=== PATIENT | female | born 1945 | race Caucasian/White ===

== ENCOUNTER 2018-11-14 11:51 | Inpatient (IN) | payer MEDICARE, BC ==
[~2018-11-14] VITALS: Ht 162.6 cm; Wt 83.5 kg
[2018-11-14 14:07] LABS: BASOPHILS 0.3 % (0-2); EOSINOPHILS 4.4 % (0-7); HEMATOCRIT 37.2 % (36.0-48.0); HEMOGLOBIN 12.5 g/dL (12-16); LYMPHOCYTES 36.7 % (15-50); MCH 32.3 pg (26.0-34.0); MCHC 33.6 g/dL (31.0-37.0); MCV 96.1 fL (80.0-100.0); MEAN PLATELET VOLUME 12.1 fL (7.4-10.4); NEUTROPHILS 48.6 % (40-80); PLATELET COUNT 217 10x3/uL (130-400); RBC 3.87 10x6/uL (4.00-5.40); RDW 14.1 % (11.5-14.5); WBC 3.9 10x3/uL (4.8-10.8)
[2018-11-14 14:21] LABS: ALBUMIN 3.1 g/dL (3.4-5.0); ALKALINE PHOSPHATASE 89 U/L (46-116); ALT (SGPT) 17 U/L (10-68); BILIRUBIN - TOTAL 0.75 mg/dL (0.2-1.3); CALC OSMOLALITY 272 mosm/kg (275-300); CALCIUM 9.1 mg/dL (8.5-10.1); CHLORIDE - SERUM 101 mmol/L (98-107); CREATININE - SERUM 0.5 mg/dL (0.6-1.3); GLUCOSE 82 mg/dL (74-106); POTASSIUM - SERUM 3.5 mmol/L (3.5-5.1); PROTEIN - SERUM 6.3 g/dL (6.4-8.2); SODIUM 138 mmol/L (136-145); UREA NITROGEN 7 mg/dL (7-18); eGFR NON AFRICAN AMERICAN > 90 mL/min (90-120)
[2018-11-14 14:29] LABS: MAGNESIUM - SERUM 1.9 mg/dL (1.8-2.4); THYROID STIMULATING HORMONE 0.77 uIU/mL (0.36-3.74)
[2018-11-14 15:17] VITALS: BP 164/66
[2018-11-14 17:32] VITALS: BP 140/63
[2018-11-14 17:45] VITALS: BP 147/68; BMI 31.6
--- NOTE | 2018-11-14 19:00 | NUR ---
REPORT RECEIVED AND CARE OF PT ASSUMED. PT LYING IN SUPINE POSITION WATCHING TV. REPORTS SMALL BM AND PASSING LOTS OF GAS SINCE RECEIVING MAG CITRATE. WILL MONITOR FOR NEEDS.
[2018-11-14 20:55] VITALS: BP 144/58
--- NOTE | 2018-11-14 21:27 | NUR ---
HS MEDICATIONS GIVEN. WILL CONTINUE TO MONITOR FOR NEEDS.
[2018-11-15 04:56] LABS: BASOPHILS 0.3 % (0-2); EOSINOPHILS 6.6 % (0-7); HEMATOCRIT 34.2 % (36.0-48.0); HEMOGLOBIN 11.2 g/dL (12-16); IMMATURE GRANULOCYTES 0.3 % (0-5); LYMPHOCYTES 39.7 % (15-50); MCH 31.9 pg (26.0-34.0); MCHC 32.7 g/dL (31.0-37.0); MCV 97.4 fL (80.0-100.0); MEAN PLATELET VOLUME 11.9 fL (7.4-10.4); MONOCYTES 14.8 % (2-11); NEUTROPHILS 38.3 % (40-80); PLATELET COUNT 195 10x3/uL (130-400); RBC 3.51 10x6/uL (4.00-5.40); RDW 14.5 % (11.5-14.5); WBC 3.2 10x3/uL (4.8-10.8)
[2018-11-15 05:13] LABS: ALBUMIN 2.4 g/dL (3.4-5.0); ALKALINE PHOSPHATASE 65 U/L (46-116); ALT (SGPT) 16 U/L (10-68); BILIRUBIN - TOTAL 0.58 mg/dL (0.2-1.3); CALC OSMOLALITY 275 mosm/kg (275-300); CALCIUM 7.9 mg/dL (8.5-10.1); CARBON DIOXIDE 32.2 mmol/L (21.0-32.0); CHLORIDE - SERUM 105 mmol/L (98-107); CREATININE - SERUM 0.5 mg/dL (0.6-1.3); GLUCOSE 105 mg/dL (74-106); POTASSIUM - SERUM 3.2 mmol/L (3.5-5.1); PROTEIN - SERUM 5.3 g/dL (6.4-8.2); SODIUM 140 mmol/L (136-145); eGFR NON AFRICAN AMERICAN > 90 mL/min (90-120)
[2018-11-15 05:16] VITALS: BP 124/39
[2018-11-15 05:21] LABS: UREA NITROGEN 4 mg/dL (7-18)
[2018-11-15 08:16] VITALS: BP 121/40
--- NOTE | 2018-11-15 09:06 | NUR ---
PT ALERT X 4. EXPIRATORY WHEEZES TO ALL EDMOND, O2 OFF BUT WITHIN REACH. IV TO LEFT AC, PATENT, DRESSING CDI. SKIN TEAR TO LEFT FOREARM, DRESSING CDI. ABDOMEN TENDER IN LLQ, BOWEL SOUNDS ACIVE. BED LOW, CALL LIGHT IN REACH. NO OTHER NEEDS AT THIS TIME.
[2018-11-15 12:49] VITALS: BP 127/60
[2018-11-15 16:41] VITALS: BP 129/41
--- NOTE | 2018-11-15 19:00 | NUR ---
REPORT RECEIVED AND CARE OF PT ASSUMED. PT LYING IN SUPINE POSITION WATCHING TV. IV TO LEFT AC PATENT WITH D5NS INFUSING AT 100 ML/HR. O2 IN USE VIA NC AT 2L. WILL MONITOR FOR NEEDS.
[2018-11-15 20:00] VITALS: BP 137/47
--- NOTE | 2018-11-15 20:23 | NUR ---
HS MEDICATIONS GIVEN. WILL CONTINUE TO MONITOR FOR NEEDS.
--- NOTE | 2018-11-15 23:49 | NUR ---
IV TO LEFT AC LEAKING / BLEEDING. REMOVED WITH CATHETER TIP INTACT. RE-SITED TO LEFT WRIST USING 22 GUAGE CATHETER IN ONE STICK. IV FLUIDS RE-STARTED.
[2018-11-16] VITALS: BP 114/53
[2018-11-16 04:00] VITALS: BP 107/44
[2018-11-16 04:06] LABS: BASOPHILS 0.3 % (0-2); EOSINOPHILS 6.6 % (0-7); HEMATOCRIT 34.2 % (36.0-48.0); HEMOGLOBIN 11.1 g/dL (12-16); LYMPHOCYTES 38.4 % (15-50); MCH 31.6 pg (26.0-34.0); MCHC 32.5 g/dL (31.0-37.0); MCV 97.4 fL (80.0-100.0); MEAN PLATELET VOLUME 12.3 fL (7.4-10.4); MONOCYTES 11.8 % (2-11); NEUTROPHILS 42.9 % (40-80); PLATELET COUNT 190 10x3/uL (130-400); RBC 3.51 10x6/uL (4.00-5.40); RDW 14.3 % (11.5-14.5)
[2018-11-16 04:34] LABS: ALBUMIN 2.5 g/dL (3.4-5.0); ALKALINE PHOSPHATASE 67 U/L (46-116); ALT (SGPT) 14 U/L (10-68); BILIRUBIN - TOTAL 0.51 mg/dL (0.2-1.3); CALC OSMOLALITY 275 mosm/kg (275-300); CALCIUM 8.3 mg/dL (8.5-10.1); CARBON DIOXIDE 28.9 mmol/L (21.0-32.0); CHLORIDE - SERUM 107 mmol/L (98-107); CREATININE - SERUM 0.5 mg/dL (0.6-1.3); GLUCOSE 110 mg/dL (74-106); POTASSIUM - SERUM 3.5 mmol/L (3.5-5.1); PROTEIN - SERUM 5.6 g/dL (6.4-8.2); SODIUM 139 mmol/L (136-145); UREA NITROGEN 5 mg/dL (7-18); eGFR NON AFRICAN AMERICAN > 90 mL/min (90-120)
[2018-11-16 08:20] VITALS: BP 138/47
--- NOTE | 2018-11-16 08:56 | NUR ---
PT ALERT X 4. EXPIRATORY WHEEZES TO ALL EDMOND, O2 OFF BUT WITHIN REACH. PAIN RATED 5/10, WILL MONITOR. IV TO LEFT WRIST, PATENT, DRESSING CDI. BED LOW, CALL LIGHT IN REACH. NO OTHER NEEDS AT THIS TIME.
[2018-11-16 12:39] VITALS: BP 123/54
[2018-11-16 13:31] VITALS: Ht 162.6 cm; Wt 83.5 kg
[2018-11-16 17:15] VITALS: BP 143/56
[2018-11-16 17:41] LABS: APPEARANCE CLEAR (CLEAR); BILIRUBIN NEGATIVE (NEGATIVE); COLOR YELLOW (YELLOW); GLUCOSE NEGATIVE (NEGATIVE); KETONE NEGATIVE (NEGATIVE); NITRITE NEGATIVE (NEGATIVE); PROTEIN NEGATIVE (NEGATIVE); UROBILINOGEN NORMAL (NORMAL)
[2018-11-16 20:00] VITALS: BP 146/70
[2018-11-17] VITALS: BP 128/48; BP 187/113
--- NOTE | 2018-11-17 00:12 | NUR ---
1946)REC' AT [facility]. OF SHIFT SITTING ON SIDE OF BED 02 OFF STATES I ONLY USE IT AT HOME PRN.NO RESP. DIFFICULTY DIFFICULTY OBSERVED. WILL CONTINUE TO MONITOR FOR ANY CHGES. AND FOLLOW CURRENT PLAN OF CARE
[2018-11-17 04:00] VITALS: BP 134/49
[2018-11-17 05:34] LABS: CALC OSMOLALITY 285 mosm/kg (275-300); CREATININE - SERUM 0.4 mg/dL (0.6-1.3); GLUCOSE 99 mg/dL (74-106); POTASSIUM - SERUM 3.6 mmol/L (3.5-5.1); SODIUM 145 mmol/L (136-145); UREA NITROGEN 3 mg/dL (7-18); eGFR NON AFRICAN AMERICAN > 90 mL/min (90-120)
[2018-11-17 05:35] LABS: ALBUMIN 2.2 g/dL (3.4-5.0); ALKALINE PHOSPHATASE 60 U/L (46-116); ALT (SGPT) 12 U/L (10-68); BILIRUBIN - TOTAL 0.44 mg/dL (0.2-1.3); CALCIUM 7.8 mg/dL (8.5-10.1); CHLORIDE - SERUM 112 mmol/L (98-107); PROTEIN - SERUM 4.7 g/dL (6.4-8.2)
[2018-11-17 07:59] LABS: BASOPHILS 0.3 % (0-2); EOSINOPHILS 6.2 % (0-7); HEMATOCRIT 31.2 % (36.0-48.0); HEMOGLOBIN 10.2 g/dL (12-16); LYMPHOCYTES 44.3 % (15-50); MCH 31.5 pg (26.0-34.0); MCHC 32.7 g/dL (31.0-37.0); MCV 96.3 fL (80.0-100.0); MEAN PLATELET VOLUME 12.6 fL (7.4-10.4); MONOCYTES 12.4 % (2-11); NEUTROPHILS 36.8 % (40-80); PLATELET COUNT 182 10x3/uL (130-400); RBC 3.24 10x6/uL (4.00-5.40); RDW 14.3 % (11.5-14.5); WBC 3.1 10x3/uL (4.8-10.8)
--- NOTE | 2018-11-17 08:06 | NUR ---
I have reviewed this patient and I concur with the Shift Assessment completed by the Licensed Practical Nurse today this shift.
--- NOTE | 2018-11-17 08:16 | NUR ---
AWAKE AND ALERT. ORIENTED X3. NO C/O AT THIS TIME. LUNGS HAVE CRACKLES AND WHEEZES THROUGHOUT LUNG EDMOND, OCCASSIONAL PRODUCTIVE COUGH REPORTED. SKIN IS INTACT WITHOUT REDNESS. IV TO LEFT WRIST PATETN WITHOUT REDNESS AT INSERTION SITE. DENIES NEEDS. REGULAR BREAKFAST TRAY ORDERED.
[2018-11-17 08:48] VITALS: BP 144/75
--- NOTE | 2018-11-17 09:30 | NUR ---
ATE ALMOST ALL OF REGULAR TRAY WITHOUT PAIN OR NAUSEA.
[2018-11-17] MEDS ORDERED: MIRALAX17 GM PO (10:02)
--- NOTE | 2018-11-17 11:00 | NUR ---
SITTING UP IN CHAIR AT SIDE OF BED. DENIES NEEDS.
--- NOTE | 2018-11-17 12:06 | MORECARE ---
CASE MANAGEMENT DISCHARGE SUMMARY PATIENT: KRIS GRECO UNIT: [id number] ADM DATE: 11/14/18 AGE: 73 : 43 SEX: F ROOM/BED: D.2203 AUTHOR: ULISES LOPEZ PHYSICIAN: REFERRING PHYSICIAN: NELSON ACOSTA MD DATE OF SERVICE: 11/17/18 Discharge Plan Patient Name: KRIS GRECO Facility: [facility]:[place] : 1945 Planned Disposition: Home or Self Care Anticipated Discharge Date: Discharge Date: Expected LOS: Initial Reviewer: [email or web address] Initial Review Date: 11/14/2018 Generated: 11/17/18 1:06 pm Coverage Notice Reviewer: [email or web address] Steffany Tate Notice Issued Date-Time: 11/17/2018 12:00 Notice Type: IM Discharge Notice Notice Delivered To: Patient Relationship to Patient: Cottrell Operator Name: Delivery Method: HAND - Hand Delivered Queenie Days: Prior Verbal Notification: Recipient Understood Notice: Yes Recipient Signature: Yes Med Rec Note Co-signed by Attending: Coverage Notice Comment: Reviewer: [email or web address] Steffany Tate Notice Issued Date-Time: 11/17/2018 12:00 Notice Type: Patient Choice Letter Notice Delivered To: Patient Relationship to Patient: Cottrell Operator Name: Delivery Method: HAND - Hand Delivered Queenie Days: Prior Verbal Notification: Recipient Understood Notice: Yes Recipient Signature: Yes Med Rec Note Co-signed by Attending: Coverage Notice Comment: CHIKIS Patient Name: KRIS GRECO Page [id number] at 1206 All edits/amendments must be made on the electronic document DICTATION DATE: 11/17/18 1206 FEED IN WORKER: NEGRITA 11/17/18 1206 RPT#: [id number] DC DATE: STATUS: ADM IN [place] [address] [place] [address] END OF REPORT
--- NOTE | 2018-11-17 12:15 | MORECARE ---
CASE MANAGEMENT DISCHARGE SUMMARY PATIENT: KRIS GRECO UNIT: [id number] ADM DATE: 11/14/18 AGE: 73 : 43 SEX: F ROOM/BED: D.2203 AUTHOR: JESSICADOC PHYSICIAN: REFERRING PHYSICIAN: NELSON ACOSTA MD DATE OF SERVICE: 11/17/18 Discharge Plan Patient Name: KRIS GRECO Facility: [facility]:[place] : 1945 Planned Disposition: Home or Self Care Anticipated Discharge Date: Discharge Date: Expected LOS: Initial Reviewer: [email or web address] Initial Review Date: 11/14/2018 Generated: 11/17/18 1:14 pm Comments DCP- Discharge Planning Updated by [email or web address]: Griselda Tate on 11/17/18 11:[address] Patient Name: KRIS GRECO Admission Status: ER Accout number: [id number] Admission Date: 11-14-2018 : 1945 Admission Diagnosis:DEHYDRATION Attending: NELSON ACOSTA Current LOS: 3 Anticipated DC Date: Planned Disposition: Home or Self Care Primary Insurance: MEDICARE A & B Discharge Planning Comments: CM met with patient to complete initial dc planning assessment. CM educated patient on the CM role and verbal consent given by patient to complete assessment. Patient lives at home with her adult son and his . Her daughter in law will be the one to drive her home today. At discharge patient plans to return home and feels this is a safe discharge. CM discussed availability of home health, rehab services, and medical equipment. She did not want home health and refusal form signed. She has home O2 and a nebulizer that she uses at night from [facility]. [facility] served and explained. Patient denied known discharge needs at this time. CM will continue to follow and will assist as needed with dc plans/needs. Iron Installer: Griselda Tate DCPIA - Discharge Planning Initial Assessment Updated by [id number]: Griselda Tate on 11/17/18 12:08 pm * Is the patient Alert and Oriented? Yes * How many steps to enter\exit or inside your home? RAMP * PCP INDIGO SAGASTUME * [facility]acy [facility] * Preadmission Environment Home with Family * ADLs Independent * Equipment Nebulizer Oxygen * List name and contact numbers for known caregivers / representatives who currently or will assist patient after discharge: PRANAY GRECO [phone] * Verbal permission to speak to the caregivers and representatives has been obtained from the patient. N/A * Community resources currently utilized None * Additional services required to return to the preadmission environment? No * Can the patient safely return to the preadmission environment? Yes * Has this patient been hospitalized within the prior 30 days at any hospital? No Coverage Notice Reviewer: [email or web address] Tate Notice Issued Date-Time: 11/17/2018 12:00 Notice Type: IM Discharge Notice Notice Delivered To: Patient Relationship to Patient: Director Fundraising Name: Delivery Method: HAND - Hand Delivered Queenie Days: Prior Verbal Notification: Recipient Understood Notice: Yes Recipient Signature: Yes Med Rec Note Co-signed by Attending: Coverage Notice Comment: Reviewer: JULIÁN Tate Notice Issued Date-Time: 11/17/2018 12:00 Notice Type: Patient Choice Letter Notice Delivered To: Patient Relationship to Patient: Director Fundraising Name: Delivery Method: HAND - Hand Delivered Queenie Days: Prior Verbal Notification: Recipient Understood Notice: Yes Recipient Signature: Yes Med Rec Note Co-signed by Attending: Coverage Notice Comment: CHIKIS Ponce DP export: 11/17/18 11:06 a Patient Name: KRIS GRECO Page [phone] at 1215 All edits/amendments must be made on the electronic document DICTATION DATE: 11/17/18 1214 LEAD MANUFACTURING ENGINEERING TECH: NEGRITA 11/17/18 1214 RPT#: [id number] DC DATE: STATUS: ADM IN [facility] [address] [place] [address] END OF REPORT
[2018-11-17 13:47] VITALS: BP 128/56
--- NOTE | 2018-11-17 13:47 | NUR ---
HAVING SOME EMESIS AND DRY HEAVING. GIVEN 4MG ZOFRAN SLOW IVP FOR SAME. WILL MONITOR.
--- NOTE | 2018-11-17 14:29 | MORECARE ---
CASE MANAGEMENT DISCHARGE SUMMARY PATIENT: KRIS GRECO UNIT: [id number] ADM DATE: 11/14/18 AGE: 73 : 43 SEX: F ROOM/BED: D.2203 AUTHOR: JESSICADOC PHYSICIAN: REFERRING PHYSICIAN: NELSON ACOSTA MD DATE OF SERVICE: 11/17/18 Discharge Plan Patient Name: KRIS GRECO Facility: [facility]:[place] : 1945 Planned Disposition: Home or Self Care Anticipated Discharge Date: Discharge Date: Expected LOS: Initial Reviewer: [id number] Initial Review Date: 11/14/2018 Generated: 11/17/18 3:29 pm Comments DCP- Discharge Planning Updated by [id number]: Griselda Tate on 11/17/18 1:[address] DISCHARGE CANCELLED PATIENT VOMITING DCP- Discharge Planning Updated by [email or web address]: Griselda Tate on 11/17/18 11:[address] Patient Name: KRIS GRECO Admission Status: ER Accout number: [id number] Admission Date: 11-14-2018 : 1945 Admission Diagnosis:DEHYDRATION Attending: NELSON ACOSTA Current LOS: 3 Anticipated DC Date: Planned Disposition: Home or Self Care Primary Insurance: MEDICARE A & B Discharge Planning Comments: CM met with patient to complete initial dc planning assessment. CM educated patient on the CM role and verbal consent given by patient to complete assessment. Patient lives at home with her adult son and his . Her daughter in law will be the one to drive her home today. At discharge patient plans to return home and feels this is a safe discharge. CM discussed availability of home health, rehab services, and medical equipment. She did not want home health and refusal form signed. She has home O2 and a nebulizer that she uses at night from [facility]. [facility] served and explained. Patient denied known discharge needs at this time. CM will continue to follow and will assist as needed with dc plans/needs. Rockboard Lather: Griselda Tate DCPIA - Discharge Planning Initial Assessment Updated by [id number]: Griselda Tate on 11/17/18 12:08 pm * Is the patient Alert and Oriented? Yes * How many steps to enter\exit or inside your home? RAMP * PCP [facility] * [facility]acy [facility] * Preadmission Environment Home with Family * ADLs Independent * Equipment Nebulizer Oxygen * List name and contact numbers for known caregivers / representatives who currently or will assist patient after discharge: PRANAY GRECO [phone] * Verbal permission to speak to the caregivers and representatives has been obtained from the patient. N/A * Community resources currently utilized None * Additional services required to return to the preadmission environment? No * Can the patient safely return to the preadmission environment? Yes * Has this patient been hospitalized within the prior 30 days at any hospital? No Coverage Notice Reviewer: [email or web address] Steffany Tate Notice Issued Date-Time: 11/17/2018 12:00 Notice Type: IM Discharge Notice Notice Delivered To: Patient Relationship to Patient: Senior Safety Support Manager Name: Delivery Method: HAND - Hand Delivered Queenie Days: Prior Verbal Notification: Recipient Understood Notice: Yes Recipient Signature: Yes Med Rec Note Co-signed by Attending: Coverage Notice Comment: Reviewer: [id number] Tate Notice Issued Date-Time: 11/17/2018 12:00 Notice Type: Patient Choice Letter Notice Delivered To: Patient Relationship to Patient: Senior Safety Support Manager Name: Delivery Method: HAND - Hand Delivered Queenie Days: Prior Verbal Notification: Recipient Understood Notice: Yes Recipient Signature: Yes Med Rec Note Co-signed by Attending: Coverage Notice Comment: CHIKIS HESS export: 11/17/18 11:15 a Patient Name: KRIS GRECO Page [id number] at 1429 All edits/amendments must be made on the electronic document DICTATION DATE: 11/17/18 142 EYE DROPPER ASSEMBLER: NEGRITA 11/17/18 142 RPT#: [id number] DC DATE: STATUS: ADM IN [facility] [address] [place] [address] END OF REPORT
[2018-11-17 16:44] VITALS: BP 122/48
--- NOTE | 2018-11-17 19:26 | NUR ---
ATE ALL OF CL SUPPER WITHOUT NAUSEA OR INCREASED PAIN. DENIES NEEDS. NO CHANGES NOTED.
--- NOTE | 2018-11-17 21:30 | NUR ---
A&O X 4. AMBULATORY. DENIES PAIN, N/V. BOWEL SOUNDS ACTIVE X 4. REPORTS 2 SMALL LOOSE STOOLS DURING DAYSHIFT. WILL CONTINUE TO MONITOR.
[2018-11-17 22:24] VITALS: BP 144/58
[2018-11-18 03:48] VITALS: BP 156/62
--- NOTE | 2018-11-18 05:00 | NUR ---
I have reviewed this patient and I concur with the Shift Assessment completed by the Licensed Practical Nurse today this shift.
[2018-11-18 06:49] VITALS: BP 147/53
[2018-11-18 07:22] LABS: BASOPHILS 0.6 % (0-2); EOSINOPHILS 6.4 % (0-7); HEMATOCRIT 30.9 % (36.0-48.0); HEMOGLOBIN 9.9 g/dL (12-16); IMMATURE GRANULOCYTES 0.3 % (0-5); LYMPHOCYTES 35.8 % (15-50); MCH 31.2 pg (26.0-34.0); MCV 97.5 fL (80.0-100.0); MEAN PLATELET VOLUME 12.5 fL (7.4-10.4); MONOCYTES 13.7 % (2-11); NEUTROPHILS 43.2 % (40-80); PLATELET COUNT 178 10x3/uL (130-400); RBC 3.17 10x6/uL (4.00-5.40); RDW 14.4 % (11.5-14.5); WBC 3.4 10x3/uL (4.8-10.8)
[2018-11-18 07:45] LABS: ALBUMIN 2.1 g/dL (3.4-5.0); ALKALINE PHOSPHATASE 59 U/L (46-116); ALT (SGPT) 14 U/L (10-68); BILIRUBIN - TOTAL 0.46 mg/dL (0.2-1.3); CALC OSMOLALITY 281 mosm/kg (275-300); CALCIUM 7.6 mg/dL (8.5-10.1); CARBON DIOXIDE 27.5 mmol/L (21.0-32.0); CHLORIDE - SERUM 109 mmol/L (98-107); CREATININE - SERUM 0.4 mg/dL (0.6-1.3); GLUCOSE 93 mg/dL (74-106); POTASSIUM - SERUM 3.2 mmol/L (3.5-5.1); SODIUM 143 mmol/L (136-145); UREA NITROGEN 3 mg/dL (7-18); eGFR NON AFRICAN AMERICAN > 90 mL/min (90-120)
--- NOTE | 2018-11-18 07:51 | NUR ---
AWAKE AND ALERT. ORIENTED X3. NO C/O AT THIS TIME. LUNGS HAVE CRACKLES AND WHEEZES THROUGHOUT, NO COUGH NOTED. SKIN IS INTACT WITHOUT REDNESS. IV TO LEFT FOREARM IS PATENT WITHOUT REDNESS. WILL MONITOR. DENIES NEEDS.
[2018-11-18 09:37] VITALS: BP 128/82
[2018-11-18 10:17] VITALS: BP 128/82
--- NOTE | 2018-11-18 11:00 | NUR ---
HAD STOOL WITH SOME FORM TO IT. SPECIMEN SENT TO LAB PER ORDERS.
--- NOTE | 2018-11-18 15:11 | NUR ---
PATIENT DISCHARGED TO HOME AT THIS TIME. DISCHARGE INSTRUCTIONS GIVEN BOTH VERBALLY AND WRITTEN. ALL QUESTIONS ANSWERED. PATIENT VERBALIZED UNDERSTANDING OF SAME. NEEDED PRESCRIPTIONS GIVEN TO PATIENT. IV TO LEFT WRIST D/C WITH CATHETER INTACT. WAITING ON RIDE TO D/C HOME.
--- NOTE | 2018-11-18 15:30 | NUR ---
DISCHARGED TO HOME AMBULATORY [facility]. ALL BELONGINGS WITH PATIENT.
== END 2018-11-18 15:30 | disposition home or self-care (01) | DRG 389 ==
LOC: D.ER 11:51 → D.MS 15:10
PROVIDERS: Emergency Medicine; Internal Medicine Nephrology; ADMIT Emergency Medicine; ATTEND Emergency Medicine
DX: K56.41 Fecal impaction (principal); K56.7 Ileus, unspecified; E86.0 Dehydration; D64.9 Anemia, unspecified

== ENCOUNTER 2018-11-20 13:15 | Inpatient (IN) | payer MEDICARE, BC ==
[~2018-11-20] VITALS: Ht 162.6 cm; Wt 85.5 kg
[~2018-11-20 13:15] MED LIST: MIRALAX17 GM PO
[2018-11-20] MEDS ORDERED: SINGULAIR10 MG PO (13:27)
[2018-11-20] MEDS ORDERED: FUROSEMIDE40 MG PO (13:27)
[2018-11-20] MEDS ORDERED: POTASSIUM CHLORIDE E (13:27)
[2018-11-20] MEDS ORDERED: CARVEDILOL (13:28)
[2018-11-20 14:04] LABS: BASOPHILS 0.4 % (0-2); EOSINOPHILS 1.2 % (0-7); HEMATOCRIT 35.5 % (36.0-48.0); IMMATURE GRANULOCYTES 0.2 % (0-5); LYMPHOCYTES 18.3 % (15-50); MCH 32.1 pg (26.0-34.0); MCHC 33.8 g/dL (31.0-37.0); MCV 94.9 fL (80.0-100.0); MEAN PLATELET VOLUME 12.8 fL (7.4-10.4); MONOCYTES 17.7 % (2-11); NEUTROPHILS 62.2 % (40-80); PLATELET COUNT 172 10x3/uL (130-400); RBC 3.74 10x6/uL (4.00-5.40); RDW 13.3 % (11.5-14.5); WBC 5.1 10x3/uL (4.8-10.8)
[2018-11-20 14:21] LABS: ALBUMIN 2.7 g/dL (3.4-5.0); ALKALINE PHOSPHATASE 83 U/L (46-116); ALT (SGPT) 18 U/L (10-68); BILIRUBIN - TOTAL 1.04 mg/dL (0.2-1.3); CALC OSMOLALITY 267 mosm/kg (275-300); CALCIUM 8.4 mg/dL (8.5-10.1); CARBON DIOXIDE 31.6 mmol/L (21.0-32.0); CHLORIDE - SERUM 96 mmol/L (98-107); CREATININE - SERUM 0.6 mg/dL (0.6-1.3); GLUCOSE 96 mg/dL (74-106); PROTEIN - SERUM 6.3 g/dL (6.4-8.2); SODIUM 135 mmol/L (136-145); UREA NITROGEN 6 mg/dL (7-18); eGFR NON AFRICAN AMERICAN > 90 mL/min (90-120)
[2018-11-20 14:29] LABS: POTASSIUM - SERUM 2.9 mmol/L (3.5-5.1)
[2018-11-20 16:23] VITALS: BP 149/70
--- NOTE | 2018-11-20 16:53 | NUR ---
PATIENT STATES SHE IS ALLERGIC TO ROCEPHIN AND CAUSES ANAPHYAXIS
--- NOTE | 2018-11-20 17:50 | NUR ---
CLINDAMYCIN STOP TIME 1750. PATIENT TOLERATED WELL. NO DISTRESS.
[2018-11-20] MEDS ORDERED: FLUTICASONE PRO16 GM NASAL (18:04)
[2018-11-20] MEDS ORDERED: VITAMIN B-12100 MCG PO (18:06)
[2018-11-20] MEDS ORDERED: CALCIUM 250+D T1 TAB PO (18:07)
[2018-11-20] MEDS ORDERED: MAG 6464 MG PO (18:07)
[2018-11-20] MEDS ORDERED: STOOL SOFTENER100 M1 PO (18:08)
[2018-11-20 18:55] VITALS: BMI 27.5
[2018-11-20 20:00] VITALS: BP 154/67
--- NOTE | 2018-11-20 20:16 | NUR ---
REPORT RECEIVED, WILL CONTINUE POC. PATIENT IS AAOX4, UP AD JENNIFER. PATIENT IS SITTING IN CHAIR EATING. RR EVEN AND UNLABORED ON ROOM AIR. NO S/SX OF DISTRESS NOTED. PATIENT HAS IV TO RT FA WITH ZOSYN INFUSING. DRSG IS C/D/I. PATIENT DENIES FURTHER NEEDS AT THIS TIME. CL IN REACH. WILL CTM.
--- NOTE | 2018-11-20 22:24 | NUR ---
RADIOLOGY CAME DOWN TO TAKE PATIENT TO CT. NEW IV STARTED TO MID RIGHT FOREARM TO BE ABLE TO TOLERATE CONTRAST BETTER. AWAITING RADIOLOGY TO COME BACK TO TAKE PATIENT.
[2018-11-21] VITALS: BP 148/57
--- NOTE | 2018-11-21 03:20 | NUR ---
I have reviewed this patient and I concur with the Shift Assessment completed by the Licensed Practical Nurse today this shift.
--- NOTE | 2018-11-21 03:22 | NUR ---
RETRIEVED TELEMETRY FROM TEACHER LIP READING, PLACED ON PATIENT.
[2018-11-21 04:00] VITALS: BP 118/46
--- NOTE | 2018-11-21 07:20 | NUR ---
REPORT RECIEVED FROM CHIEF ANALYTICS OFFICER AND PATIENT CARE ASSUMED. PATIENT LAYING IN BED ON BACK WITH EYES CLOSED AND BREATHING EVENLY. WILL CONTINUE TO MONITOR. SR UP X 2 BED IN LOW POSITION AND CALL LIGHT IN REACH.
[2018-11-21 07:36] LABS: BASOPHILS 0.6 % (0-2); EOSINOPHILS 5.1 % (0-7); HEMATOCRIT 34.6 % (36.0-48.0); HEMOGLOBIN 11.3 g/dL (12-16); LYMPHOCYTES 35.3 % (15-50); MCH 31.2 pg (26.0-34.0); MCHC 32.7 g/dL (31.0-37.0); MCV 95.6 fL (80.0-100.0); MEAN PLATELET VOLUME 11.8 fL (7.4-10.4); MONOCYTES 19.5 % (2-11); NEUTROPHILS 39.5 % (40-80); PLATELET COUNT 160 10x3/uL (130-400); RBC 3.62 10x6/uL (4.00-5.40); RDW 13.6 % (11.5-14.5)
[2018-11-21 07:44] LABS: WBC 3.3 10x3/uL (4.8-10.8)
[2018-11-21 07:50] LABS: ALBUMIN 2.4 g/dL (3.4-5.0); ALKALINE PHOSPHATASE 67 U/L (46-116); BILIRUBIN - TOTAL 0.81 mg/dL (0.2-1.3); CALC OSMOLALITY 277 mosm/kg (275-300); CALCIUM 8.4 mg/dL (8.5-10.1); CARBON DIOXIDE 32.9 mmol/L (21.0-32.0); CHLORIDE - SERUM 104 mmol/L (98-107); CREATININE - SERUM 0.5 mg/dL (0.6-1.3); GLUCOSE 86 mg/dL (74-106); MAGNESIUM - SERUM 1.6 mg/dL (1.8-2.4); PHOSPHOROUS 3.3 mg/dL (2.5-4.9); PROTEIN - SERUM 5.7 g/dL (6.4-8.2); SODIUM 141 mmol/L (136-145); UREA NITROGEN 6 mg/dL (7-18); eGFR NON AFRICAN AMERICAN > 90 mL/min (90-120)
[2018-11-21 08:00] VITALS: BP 143/51
[2018-11-21 08:08] LABS: ALT (SGPT) 12 U/L (10-68); POTASSIUM - SERUM 3.7 mmol/L (3.5-5.1)
[2018-11-21 08:30] LABS: % SATURATION 20 % (15-55); IRON 46 ug/dl (35-150); TOTAL IRON BIND CAPACITY 222 ug/dl (260-445); UNSAT IRON BIND CAPACITY 176 ug/dl (150-375)
--- NOTE | 2018-11-21 09:00 | NUR ---
PATIENT AWAKE, ALERT AND ORIENTED X 4. PATIENT IS STABLE AND VSS. PATIENT DENIES ANY NEEDS OR PAIN. LEFT HAND WITH EDEMA AND REDNESS. AUGIE KAHNN TO UNIT AND NEW ORDER RECEIVED FOR ORTHO CONSULT. INSTRUCTED PATIENT TO KEEP LEFT HAND ELEVATED ON PILLOW. PATIENT VERBALIZED UNDERSTANDING. WILL CONTINUE TO MONITOR.
--- NOTE | 2018-11-21 11:45 | NUR ---
NILAM CORRALES WITH ORTHO TO ROOM. NEW ORDERS RECEIVED.
--- NOTE | 2018-11-21 13:00 | NUR ---
PATIENT SITTING UP IN BS CHAIR. PATIENT IS STABLE AND DENIES ANY NEEDS OR PAIN. LEFT WRIST FOREARM SKIN INTACT. REDNESS AND EDEMA NOTED. VIRxSYS DRY HEAT PAD APPLIED PER ORDER. WILL CONTINUE TO MONITOR. CALL LIGHT IN REACH.
--- NOTE | 2018-11-21 13:30 | NUR ---
PATIENT CONITNUES TO SIT IN BS CHAIR WITH LEFT WRIST/FOREARM IN AQUILES. PAD REMOVED . SKIN INTACT. PATIENT DENIES ANY PAIN OR NEEDS. WILL CONTINUE TO MONITOR. CALL LIGHT IN REACH.
[2018-11-21] MEDS ORDERED: COREG 3.1253.125 MG (13:44)
--- NOTE | 2018-11-21 15:04 | NUR ---
PATIENT UP TO BR AND BACK TO BS CHAIR REQUESTED. LEFT WRIST SKIN INTACT. PATIENT DENIES ANY NEEDS OR PAIN. WILL CONTINUE TO MONITOR. CALL LIGHT IN REACH.
[2018-11-21 18:30] VITALS: BP 110/65
--- NOTE | 2018-11-21 18:31 | NUR ---
PATIENT SITTING UP IN BS CHAIR. PATIENT IS STABLE AND VSS. SKIN TO LT WRIST/FOREARM INTACT, RED AND SWOLLEN. AQUILES BACK IN PLACE. PATIENT DENIES ANY PAIN OR NEEDS. WILL CONTINUE TO MONITOR. CALL LIGHT IN REACH.
--- NOTE | 2018-11-21 19:30 | NUR ---
PT SITTING UP IN CHAIR NEXT TO BED. CL IN REACH. DENIES NEEDS OR PAIN AT THIS TIME. BED IN LOW SIDE RAILS X2. RESP EVEN AND UNLABORED. A/O X4. WILL CONTINUE TO MONITOR.
[2018-11-21 20:24] VITALS: BP 115/42
--- NOTE | 2018-11-21 22:36 | NUR ---
PT LYING IN BED. CL IN REACH. RESP EVEN AND UNLABORED. DENIES NEEDS OR PAIN AT THIS TIME. WCTM
[2018-11-22 01:04] VITALS: BP 114/40
--- NOTE | 2018-11-22 01:08 | NUR ---
I have reviewed this patient and I concur with the Shift Assessment completed by the Licensed Practical Nurse today this shift.
[2018-11-22 04:15] VITALS: BP 124/42
[2018-11-22 05:28] LABS: BASOPHILS 0.6 % (0-2); EOSINOPHILS 3.6 % (0-7); HEMOGLOBIN 9.9 g/dL (12-16); IMMATURE GRANULOCYTES 0.3 % (0-5); MCH 31.8 pg (26.0-34.0); MCV 96.5 fL (80.0-100.0); MEAN PLATELET VOLUME 12.9 fL (7.4-10.4); MONOCYTES 21.2 % (2-11); NEUTROPHILS 35.3 % (40-80); PLATELET COUNT 137 10x3/uL (130-400); RBC 3.11 10x6/uL (4.00-5.40); RDW 13.9 % (11.5-14.5); WBC 3.6 10x3/uL (4.8-10.8)
[2018-11-22 05:50] LABS: CALC OSMOLALITY 282 mosm/kg (275-300); CALCIUM 7.5 mg/dL (8.5-10.1); CARBON DIOXIDE 31.4 mmol/L (21.0-32.0); CHLORIDE - SERUM 108 mmol/L (98-107); CREATININE - SERUM 0.5 mg/dL (0.6-1.3); GLUCOSE 85 mg/dL (74-106); MAGNESIUM - SERUM 1.7 mg/dL (1.8-2.4); POTASSIUM - SERUM 3.2 mmol/L (3.5-5.1); SODIUM 143 mmol/L (136-145); eGFR NON AFRICAN AMERICAN > 90 mL/min (90-120)
[2018-11-22 05:51] LABS: UREA NITROGEN 9 mg/dL (7-18)
--- NOTE | 2018-11-22 06:19 | NUR ---
LOW MAG AND LOW POTASSIUM IN AM LABS. 40 MEQ OF POTASSIUM AND 400MG OF MAG WAS ADMINISTERED PO.
--- NOTE | 2018-11-22 06:22 | NUR ---
NEXT DOSE OF MAG 400MG DUE AT 1000 TODAY.
--- NOTE | 2018-11-22 07:30 | NUR ---
AWAKE AND ALERT. ORIENTED X3. NO C/O AT THIS TIME. LUNGS HAVE CRACKLES AND WHEEZES MORE SO IN LOWER LOBES, NON PRODUCTIVE COUGH NOTED. SKIN IS INTACT WITHOUT REDNESS. THERE IS SOME REDNESS TO LEFT WRIST BUT PATIENT REPORTS THIS IMPROVED FROM ADMISSION. IV TO RIGHT WRIST AND SL TO RIGHT HAND ARE PATENT WTIHOUT REDNESS AT INSERTION SITE. DENIES NEEDS.
[2018-11-22 08:14] VITALS: BP 149/71
--- NOTE | 2018-11-22 10:00 | NUR ---
RESTING QUIETLY IN BED WITH EYES CLOSED. STATED SHE DIDN'T SLEEP LAST PM. WILL MONITOR,
--- NOTE | 2018-11-22 12:00 | NUR ---
LUNCH SERVED IN ROOM. DENIES NEEDS.
--- NOTE | 2018-11-22 13:18 | NUR ---
DR RAE HERE. NEW ORDERS RECEIVED.
[2018-11-22 14:44] LABS: ERYTHROCYTE SEDIMENTATION RATE 11 mm/hr (0-30)
--- NOTE | 2018-11-22 17:00 | NUR ---
FSBS 95. NO ACTION TAKEN
[2018-11-22 17:41] VITALS: BP 131/55
--- NOTE | 2018-11-22 18:44 | NUR ---
ATE MOST OF CL SUPPER TRAY. BACK TO BED PER SELF. OSTOMY IS LEAKING. APPLIANCE CHANGED PER STAFF. INSTRUCTED IN CARE OF SAME. ALL QUESTIONS ANSWERED. BP AFTER BOLUS COMPLETED WITH 74/40. WILL MONITOR. NO CHANGEA NOTED.
--- NOTE | 2018-11-22 19:14 | NUR ---
ATE ALMOST ALL OF SUPPER. NO CHANGES NOTED. DENIES NEEDS.
--- NOTE | 2018-11-22 19:30 | NUR ---
PT ALERT, SITTING ON SIDE OF BED TAKING UPDRAFT, R PIV INTACT WITH NS @ 75 CC/HR, NO C/O @ THIS TIME
--- NOTE | 2018-11-22 20:07 | NUR ---
REMOVED PIV FROM PATIENT'S RIGHT FA WITH TIP INTACT. SWELLING, REDNESS, AND PAIN NOTED AT IV SITE. PATIENT HAD SECOND PIV IN HER RIGHT HAND.
[2018-11-22 20:21] VITALS: BP 115/48
--- NOTE | 2018-11-22 23:27 | NUR ---
PT REMAINS AWAKE WATCHING TV, NO C/O
--- NOTE | 2018-11-23 | NUR ---
AROUSES EASILY, NO CHANGE IN STATUS
[2018-11-23 00:30] VITALS: BP 129/44
--- NOTE | 2018-11-23 02:00 | NUR ---
PT SLEEPING, HOB ELEVATED 30 DEGREES, NO DISTRESS
--- NOTE | 2018-11-23 04:00 | NUR ---
PT AROUSES EASILY, VOICES NEEDS, VITALS STABLE, NO C/O
[2018-11-23 04:31] VITALS: BP 149/62
--- NOTE | 2018-11-23 06:08 | NUR ---
PT AWAKE SITTING ON SIDE OF BED, UPDRAFT IN PROGRESS, NO C/O
[2018-11-23 06:29] LABS: BASOPHILS 0.3 % (0-2); EOSINOPHILS 2.7 % (0-7); HEMOGLOBIN 10.6 g/dL (12-16); LYMPHOCYTES 37.6 % (15-50); MCHC 33.1 g/dL (31.0-37.0); MCV 96.7 fL (80.0-100.0); MEAN PLATELET VOLUME 12.9 fL (7.4-10.4); MONOCYTES 15.4 % (2-11); PLATELET COUNT 145 10x3/uL (130-400); RBC 3.31 10x6/uL (4.00-5.40); RDW 13.9 % (11.5-14.5); WBC 3.6 10x3/uL (4.8-10.8)
[2018-11-23 06:36] LABS: CALC OSMOLALITY 279 mosm/kg (275-300); CARBON DIOXIDE 32.3 mmol/L (21.0-32.0); CHLORIDE - SERUM 106 mmol/L (98-107); CREATININE - SERUM 0.5 mg/dL (0.6-1.3); GLUCOSE 87 mg/dL (74-106); MAGNESIUM - SERUM 1.8 mg/dL (1.8-2.4); POTASSIUM - SERUM 3.4 mmol/L (3.5-5.1); SODIUM 142 mmol/L (136-145); UREA NITROGEN 7 mg/dL (7-18); eGFR NON AFRICAN AMERICAN > 90 mL/min (90-120)
--- NOTE | 2018-11-23 06:46 | NUR ---
pt's right hand iv infiltrated, hand edematous, d/c'd iv with cath intact
--- NOTE | 2018-11-23 07:48 | NUR ---
REPORT RECIEVED. PT SITTING FOWLERS EATING BREAKFAST. SHE IS ON 2L NC. BINDER FOLDER OPERATOR REPORTED HER IV TO THE R HAND INFILTRATED AROUND 5AM. WILL SEE ABOUT STARTING NEW PIV. RR EVEN AND UNLABORED. NO DISTRESS NOTED. BED LOCKED AND IN LOWEST POSITION. CALL LIGHT WITHIN REACH. WILL CTM
[2018-11-23 09:33] VITALS: BP 143/71
[2018-11-23 12:16] VITALS: BP 99/62
[2018-11-23 12:23] VITALS: Ht 162.6 cm; Wt 85.5 kg
[2018-11-23 16:20] VITALS: BP 145/50
--- NOTE | 2018-11-23 19:30 | NUR ---
RECEIVED REPORT, WILL ASSUME CARE OF PT, WATCHING TV, DENIES ANY NEEDS, BED IS LOW, SRX2, CALL LIGHT IN REACH, WILL CONTINUE PLAN OF CARE
[2018-11-23 20:00] VITALS: BP 159/55
[2018-11-24] VITALS: BP 134/46
--- NOTE | 2018-11-24 03:06 | NUR ---
I have reviewed this patient and I concur with the Shift Assessment completed by the Licensed Practical Nurse today this shift.
[2018-11-24 04:00] VITALS: BP 92/53
[2018-11-24 07:02] LABS: BASOPHILS 0.6 % (0-2); EOSINOPHILS 3.4 % (0-7); HEMATOCRIT 31.2 % (36.0-48.0); MCH 31.1 pg (26.0-34.0); MCHC 32.1 g/dL (31.0-37.0); MCV 96.9 fL (80.0-100.0); MEAN PLATELET VOLUME 12.8 fL (7.4-10.4); MONOCYTES 13.8 % (2-11); NEUTROPHILS 46.2 % (40-80); PLATELET COUNT 138 10x3/uL (130-400); RBC 3.22 10x6/uL (4.00-5.40); RDW 13.9 % (11.5-14.5); WBC 3.6 10x3/uL (4.8-10.8)
[2018-11-24 07:15] LABS: CALC OSMOLALITY 284 mosm/kg (275-300); CALCIUM 8.2 mg/dL (8.5-10.1); CHLORIDE - SERUM 107 mmol/L (98-107); CREATININE - SERUM 0.6 mg/dL (0.6-1.3); GLUCOSE 83 mg/dL (74-106); MAGNESIUM - SERUM 1.7 mg/dL (1.8-2.4); SODIUM 144 mmol/L (136-145); eGFR NON AFRICAN AMERICAN > 90 mL/min (90-120)
[2018-11-24 07:16] LABS: UREA NITROGEN 9 mg/dL (7-18)
--- NOTE | 2018-11-24 07:19 | NUR ---
PT RESTING SUPINE IN BED WITH EYES CLOSED, BREATHING EVEN AND UNLABORED. BED IN LOWEST POSITION, BED RAILS X2, CALL LIGHT WITHIN REACH. WILL CTM.
--- NOTE | 2018-11-24 08:00 | NUR ---
PT RESTING IN BED UPON ENTERING. ALERT AND ORIENTED. DENIES ANY NEEDS. WILL CTM.
--- NOTE | 2018-11-24 09:25 | NUR ---
ADMINISTERED MORNING MEDICATION AT THIS TIME. NO TROUBLE SWALLOWING DENIES ANY NEEDS. WILL CTM.
[2018-11-24] MEDS ORDERED: CLEOCIN HCL300 MG PO (10:18)
[2018-11-24] MEDS ORDERED: FLORAJEN3 CAPS460 MG PO (10:19)
[2018-11-24] MEDS ORDERED: IBUPROFEN800 MG PO (10:20)
--- NOTE | 2018-11-24 11:50 | NUR ---
ADMINISTERED MEDICATION, NO TROUBLE SWALLOWING. DENIES ANY NEEDS AT THIS TIME. PT IS BEING DISCHARGED.
--- NOTE | 2018-11-24 12:08 | MORECARE ---
CASE MANAGEMENT DISCHARGE SUMMARY PATIENT: KRIS GRECO UNIT: [id number] ADM DATE: 11/21/18 AGE: 73 : 43 SEX: F ROOM/BED: D.1210 AUTHOR: ULISES LOPEZ PHYSICIAN: REFERRING PHYSICIAN: KISHORE ALONSO MD DATE OF SERVICE: 11/24/18 Discharge Plan Patient Name: KRIS GRECO Facility: [facility]:[place] : 1945 Planned Disposition: Home Anticipated Discharge Date: 11/26/18 Discharge Date: Expected LOS: 5 Initial Reviewer: [email or web address] Initial Review Date: 11/20/2018 Generated: 11/24/18 1:07 pm Comments DCP- Discharge Planning Updated by [email or web address]: Melissa Melvin on 11/24/18 11:[address] Patient Name: KRIS GRECO Admission Status: ER Accout number: [id number] Admission Date: 11-21-2018 : 1945 Admission Diagnosis: Attending: KISHORE ALONSO Current LOS: 3 Anticipated DC Date: 11-26-2018 Planned Disposition: Home Primary Insurance: MEDICARE A & B Discharge Planning Comments: DC PLAN: Return home with her son. DC NEEDS: Denied dc needs at this time. CM met with patient to complete initial dc planning assessment. CM educated patient on the CM role and verbal consent given by patient to complete assessment. CM verified patient's address, phone number, and emergency contact phone numbers. Patient lives at home with her son and reports she is independent in her care at home. At discharge patient plans to return home with her son and feels this is a safe discharge. CM discussed availability of home health, rehab services, and medical equipment. Patient denied known discharge needs at this time. Patient reports her son will transport her home at time of discharge. CM will continue to follow and will assist as needed with dc plans/needs. Canceling And Cutting Control Clerk: Melissa Melvin RN, [facility] DCPIA - Discharge Planning Initial Assessment Updated by [email or web address]: Melissa Melvin on 11/24/18 12:06 pm * Is the patient Alert and Oriented? Yes * How many steps to enter\exit or inside your home? Ramp * PCP Dr. Joe * Pharmacy [facility] * Preadmission Environment Home with Family * ADLs Independent * Equipment Oxygen * Other Equipment Alice is O2 provider - wears at HS only. * List name and contact numbers for known caregivers / representatives who currently or will assist patient after discharge: son * Verbal permission to speak to the caregivers and representatives has been obtained from the patient. Yes * Community resources currently utilized None * Additional services required to return to the preadmission environment? No * Can the patient safely return to the preadmission environment? Yes * Has this patient been hospitalized within the prior 30 days at any hospital? No Patient Name: KRIS GRECO Page [id number] at 1208 All edits/amendments must be made on the electronic document DICTATION DATE: 11/24/181206 LANGUAGE PATHOLOGIST: NEGRITA 11/24/181206 RPT#: [id number] DC DATE: STATUS: ADM IN [facility] [address] [place] [address] END OF REPORT
--- NOTE | 2018-11-25 09:36 | MORECARE ---
CASE MANAGEMENT DISCHARGE SUMMARY PATIENT: KRIS GRECO UNIT: [id number] ADM DATE: 11/21/18 AGE: 73 : 43 SEX: F ROOM/BED: D.1210 AUTHOR: JESSICADOC PHYSICIAN: REFERRING PHYSICIAN: KISHORE ALONSO MD DATE OF SERVICE: 11/25/18 Discharge Plan Patient Name: KRIS GRECO Facility: [facility]:[place] : 1945 Planned Disposition: Home Anticipated Discharge Date: 11/26/18 Discharge Date: 11/24/2018 Expected LOS: 5 Initial Reviewer: [email or web address] Initial Review Date: 11/20/2018 Generated: 11/25/18 10:36 am Comments DCP- Discharge Planning Updated by [email or web address]: Melissa Melvin on 11/24/18 11:[address] Patient Name: KRIS GRECO Admission Status: ER Accout number: [id number] Admission Date: 11-21-2018 : 1945 Admission Diagnosis: Attending: KISHORE ALONSO Current LOS: 3 Anticipated DC Date: 11-26-2018 Planned Disposition: Home Primary Insurance: MEDICARE A & B Discharge Planning Comments: DC PLAN: Return home with her son. DC NEEDS: Denied dc needs at this time. CM met with patient to complete initial dc planning assessment. CM educated patient on the CM role and verbal consent given by patient to complete assessment. CM verified patient's address, phone number, and emergency contact phone numbers. Patient lives at home with her son and reports she is independent in her care at home. At discharge patient plans to return home with her son and feels this is a safe discharge. CM discussed availability of home health, rehab services, and medical equipment. Patient denied known discharge needs at this time. Patient reports her son will transport her home at time of discharge. CM will continue to follow and will assist as needed with dc plans/needs. Monumental Stonemason: Melissa Melvin RN, [facility] DCPIA - Discharge Planning Initial Assessment Updated by [email or web address]: Melissa Melvin on 11/24/18 12:06 pm * Is the patient Alert and Oriented? Yes * How many steps to enter\exit or inside your home? Ramp * PCP Dr. Joe * Pharmacy [facility] * Preadmission Environment Home with Family * ADLs Independent * Equipment Oxygen * Other Equipment [employer] is O2 provider - wears at HS only. * List name and contact numbers for known caregivers / representatives who currently or will assist patient after discharge: son * Verbal permission to speak to the caregivers and representatives has been obtained from the patient. Yes * Community resources currently utilized None * Additional services required to return to the preadmission environment? No * Can the patient safely return to the preadmission environment? Yes * Has this patient been hospitalized within the prior 30 days at any hospital? No Last DP export: 11/24/18 11:08 a Patient Name: KRIS GRECO Page [id number] at 0936 All edits/amendments must be made on the electronic document DICTATION DATE: 11/25/1836 SPRING LAYER: NEGRITA 11/25/1836 RPT#: [id number] DC DATE:11/24/18 STATUS: DIS IN [facility] [address] [place] [address] END OF REPORT
== END 2018-11-24 13:10 | disposition home or self-care (01) | DRG 603 ==
LOC: D.ER 13:15 → D.M3 16:31 → OBSVTIME 16:31 → D.M3 16:31
PROVIDERS: Family Medicine; Orthopaedic Surgery; ADMIT Internal Medicine Nephrology; ATTEND Internal Medicine Nephrology
DX: L03.114 Cellulitis of left upper limb (principal); F17.213 Nicotine dependence, cigarettes, with withdrawal; E87.1 Hypo-osmolality and hyponatremia; E87.6 Hypokalemia; J44.9 Chronic obstructive pulmonary disease, unspecified; I48.91 Unspecified atrial fibrillation

== ENCOUNTER 2020-01-12 09:13 | Inpatient (IN) | payer MEDICARE, BC ==
[~2020-01-12] VITALS: Ht 157.5 cm; Wt 73.0 kg
[~2020-01-12 09:13] MED LIST changes: +CALCIUM 250+D T1 TAB PO; +CARVEDILOL; +CLEOCIN HCL300 MG PO; +COREG 3.1253.125 MG; +FLORAJEN3 CAPS460 MG PO; +FLUTICASONE PRO16 GM NASAL; +FUROSEMIDE40 MG PO; +IBUPROFEN800 MG PO; +MAG 6464 MG PO; +POTASSIUM CHLORIDE E PO; +SINGULAIR10 MG PO; +STOOL SOFTENER100 M1 PO; +VITAMIN B-12100 MCG PO
[2020-01-12 10:15] LABS: BILIRUBIN NEGATIVE (NEGATIVE); KETONE NEGATIVE (NEGATIVE); NITRITE NEGATIVE (NEGATIVE); UROBILINOGEN NORMAL mg/dL (< 2)
[2020-01-12 10:56] LABS: BASOPHILS 0.3 % (0-2); EOSINOPHILS 1.7 % (0-7); HEMATOCRIT 33.8 % (36.0-48.0); HEMOGLOBIN 10.2 g/dL (12-16); IMMATURE GRANULOCYTES 0.2 % (0-5); LYMPHOCYTES 23.6 % (15-50); MCH 30.3 pg (26.0-34.0); MCHC 30.2 g/dL (31.0-37.0); MCV 100.3 fL (80.0-100.0); MEAN PLATELET VOLUME 11.8 fL (7.4-10.4); MONOCYTES 12.3 % (2-11); NEUTROPHILS 61.9 % (40-80); RBC 3.37 10x6/uL (4.00-5.40); RDW 15.6 % (11.5-14.5); WBC 5.9 10x3/uL (4.8-10.8)
[2020-01-12 11:03] LABS: ANION GAP 9.6 mmol/L (8-16); CALCIUM 8.7 mg/dL (8.5-10.1); CARBON DIOXIDE 33.7 mmol/L (21.0-32.0); CREATININE - SERUM 1.2 mg/dL (0.6-1.3); POTASSIUM - SERUM 4.3 mmol/L (3.5-5.1)
[2020-01-12 11:07] LABS: PLATELET COUNT 216 10x3/uL (130-400)
[2020-01-12 11:21] LABS: ALBUMIN 2.7 g/dL (3.4-5.0); BILIRUBIN - TOTAL 0.94 mg/dL (0.2-1.3); PROTEIN - SERUM 5.7 g/dL (6.4-8.2); TROPONIN-I 0.042 ng/mL (0.000-0.060)
[2020-01-12 11:29] VITALS: BP 111/48
--- NOTE | 2020-01-12 11:32 | NUR ---
RESTING IN BED WITH EYES CLOSED, SNORING RESP. AROUSES EASILY AND CONT TO C/O BACK PAIN.
[2020-01-12] MEDS ORDERED: BAYER ASPIRIN325 MG PO (12:38)
[2020-01-12] MEDS ORDERED: IPRAT-ALBUT 0.5-3 ML UPD (12:42)
[2020-01-12] MEDS ORDERED: ULTRAM50 MG PO (12:42)
[2020-01-12] MEDS ORDERED: ZOFRAN4 MG PO (12:43)
[2020-01-12] MEDS ORDERED: BUMEX2 MG PO (12:43)
[2020-01-12] MEDS ORDERED: METOPROLOL TART50 MG PO (12:44)
[2020-01-12] MEDS ORDERED: PACERONE100 MG PO (12:44)
[2020-01-12] MEDS ORDERED: HOME O2 (12:44)
[2020-01-12] MEDS ORDERED: ALDACTONE50 MG PO (12:44)
[2020-01-12] MEDS ORDERED: MULTI-DAY VITAM1 TAB PO (12:45)
[2020-01-12] MEDS ORDERED: BROVANA15 MCG/2 M INH (12:45)
[2020-01-12] MEDS ORDERED: FEXOFENADINE HC60 MG PO (12:45)
[2020-01-12] MEDS ORDERED: LINZESS72 MCG PO (12:45)
[2020-01-12] MEDS ORDERED: XOPENEX 0.0.63 MG/3 UPD (12:46)
[2020-01-12] MEDS ORDERED: ELIQUIS2.5 MG PO (12:46)
[2020-01-12] MEDS ORDERED: PULMICORT0.5 MG/21 INH (12:46)
[2020-01-12] MEDS ORDERED: TESSALON PERLE100 MG PO (12:46)
[2020-01-12] MEDS ORDERED: STERAPRED 5MG 125 MG PO (12:47)
[2020-01-12] MEDS ORDERED: FERROUS SULFAT325 MG PO (12:47)
[2020-01-12 13:21] VITALS: BP 112/56
[2020-01-12 15:57] VITALS: BP 106/49
[2020-01-12 17:05] VITALS: BP 140/72
[2020-01-12 20:00] VITALS: BP 123/59
[2020-01-13 04:00] VITALS: BP 122/78
[2020-01-13 05:48] LABS: BASOPHILS 0 % (0-2); EOSINOPHILS 0 % (0-7); HEMATOCRIT 33.2 % (36.0-48.0); HEMOGLOBIN 10.1 g/dL (12-16); IMMATURE GRANULOCYTES 0.2 % (0-5); LYMPHOCYTES 13.1 % (15-50); MCH 30.3 pg (26.0-34.0); MCHC 30.4 g/dL (31.0-37.0); MCV 99.7 fL (80.0-100.0); MEAN PLATELET VOLUME 11.7 fL (7.4-10.4); MONOCYTES 0.5 % (2-11); NEUTROPHILS 86.2 % (40-80); PLATELET COUNT 233 10x3/uL (130-400); RBC 3.33 10x6/uL (4.00-5.40); RDW 15.7 % (11.5-14.5)
[2020-01-13 06:20] LABS: APTT 29.5 SECONDS (22.8-39.4); INR 1.1 (0.85-1.17); PROTIME 14.1 SECONDS (11.6-15.0)
[2020-01-13 06:26] LABS: ALBUMIN 2.5 g/dL (3.4-5.0); ANION GAP 5.1 mmol/L (8-16); BILIRUBIN - TOTAL 0.69 mg/dL (0.2-1.3); CALCIUM 8.6 mg/dL (8.5-10.1); CREATININE - SERUM 1.2 mg/dL (0.6-1.3); POTASSIUM - SERUM 4.1 mmol/L (3.5-5.1)
[2020-01-13 10:17] VITALS: BP 124/61
--- NOTE | 2020-01-13 12:02 | NUR ---
PATIENT UP TO SHOWER WITH HELP OF STUDENTS. LINEN CHANGED. PATIENT DENIES NEEDS. CALL LIGHT IN REACH
[2020-01-13 12:58] VITALS: Ht 157.5 cm; Wt 73.0 kg
[2020-01-13 13:40] VITALS: BP 110/42
--- NOTE | 2020-01-13 15:20 | NUR ---
PT HAS BLANCHABLE REDNESS ON HER BOTTOM. SHE STATES IT GOT RED BECAUSE, "I WAS SCOOTING MYSELF UP AND NOT LIFTING MY BUTT". SHE DEMONSTRATED HER ABILITY TO REPOSITION HERSELF AND LIFT HER BOTTOM. SHE DENIES IT BEING SORE OR TENDER. RCOMMENDED CALMOSEPTINE CREAM. WOUND CARE WILL MONITOR.
[2020-01-13 20:00] VITALS: BP 124/60
[2020-01-14] VITALS: BP 114/52
[2020-01-14 04:00] VITALS: BP 135/51
[2020-01-14 10:44] VITALS: BP 112/57
[2020-01-14 14:13] VITALS: BP 118/72
--- NOTE | 2020-01-14 19:27 | NUR ---
22 GAUGE STARTED TO LEFT WRIST.
--- NOTE | 2020-01-14 20:22 | NUR ---
INITIAL ROUNDS AND ASSESSMENT COMPLETED. PT RESTING IN BED. CALL LIGHT IN REACH. NEW IV SITED BY OFF GOING NURSE AND IVF NOW RESTARTED. CPOC.
--- NOTE | 2020-01-14 21:36 | NUR ---
ASSISTED UP TO BATHROOM AND BACK TO BED. BEDTIME MEDS GIVEN. TAKES PILLS WHOLE. CALL LIGHT IN REACH. CPOC.
--- NOTE | 2020-01-14 22:13 | NUR ---
ASSISTED UP TO BATHROOM TO VOID, BACK TO BED. CALL LIGHT IN REACH.
[2020-01-14 23:04] VITALS: BP 113/71
--- NOTE | 2020-01-15 02:05 | NUR ---
AWAKE, REQUESTING PAIN AND NAUSEA MED. ZOFRAN AND ULTRAM GIVEN. IVF INFUSING. PT WITH NO OTHER REQUEST. CALL LIGHT IN REACH. CPOC.
[2020-01-15 02:06] VITALS: BP 120/56
[2020-01-15 05:53] VITALS: BP 120/77
[2020-01-15 08:23] VITALS: BP 114/48
[2020-01-15 16:08] VITALS: BP 122/76
[2020-01-15 20:30] VITALS: BP 119/63
[2020-01-16 00:30] VITALS: BP 111/56
--- NOTE | 2020-01-16 03:41 | NUR ---
INITIAL ROUNDS AND ASSESSMENT COMPLETED. PT RESTING IN BED WITH NO DISTRESS. NEW IV SITED TO RFA. IVF SALINE LOCKED TO KEEP HER FROM PULLING OUT IV. CPOC. CALL LIGHT IN REACH.
[2020-01-16 04:30] VITALS: BP 120/58
--- NOTE | 2020-01-16 05:06 | NUR ---
ASSISTED UP TO BATHROOM TO VOID. REQUESTED LINZESS GIVEN. WATER PROVIDED/ENCOURAGED IVF SALINE LOCKED D/T PT FREQUENTLY PULLING OUT IV. CPOC.
[2020-01-16 07:34] LABS: BASOPHILS 0 % (0-2); EOSINOPHILS 0.4 % (0-7); HEMATOCRIT 29.2 % (36.0-48.0); HEMOGLOBIN 8.9 g/dL (12-16); IMMATURE GRANULOCYTES 0.6 % (0-5); LYMPHOCYTES 5.9 % (15-50); MCH 30.5 pg (26.0-34.0); MCHC 30.5 g/dL (31.0-37.0); MEAN PLATELET VOLUME 11.2 fL (7.4-10.4); MONOCYTES 3.6 % (2-11); NEUTROPHILS 89.5 % (40-80); PLATELET COUNT 192 10x3/uL (130-400); RBC 2.92 10x6/uL (4.00-5.40); RDW 16.1 % (11.5-14.5); WBC 4.8 10x3/uL (4.8-10.8)
[2020-01-16 08:01] LABS: ALBUMIN 2.3 g/dL (3.4-5.0); ANION GAP 7.5 mmol/L (8-16); BILIRUBIN - TOTAL 0.42 mg/dL (0.2-1.3); CALCIUM 8.1 mg/dL (8.5-10.1); CARBON DIOXIDE 29.7 mmol/L (21.0-32.0); CREATININE - SERUM 1.5 mg/dL (0.6-1.3); POTASSIUM - SERUM 4.2 mmol/L (3.5-5.1)
[2020-01-16 08:46] VITALS: BP 120/63
--- NOTE | 2020-01-16 09:16 | NUR ---
AM MEDS GIVEN AT THIS TIME. PT A/O X4 RESP EVEN AND NONLABORED ON 2L NC. RT FA IV SL. CAF WITH RATE OF 75 ON THE MONITOR. 1+ EDEMA NOTED TO [place]FORD REYES. PT DENIES ANY NEEDS AT THIS TIME. CALL LIGHT IN REACH, NAD NOTED, WILL CONTINUE TO MONITOR.
[2020-01-16 11:58] VITALS: BP 124/66
--- NOTE | 2020-01-16 16:13 | MORECARE ---
CASE MANAGEMENT DISCHARGE SUMMARY PATIENT: KRIS GRECO UNIT: [id number] ADM DATE: 01/12/20 AGE: 74 : 43 SEX: F ROOM/BED: D.2119 AUTHOR: ULISES LOPEZ PHYSICIAN: REFERRING PHYSICIAN: RITA VIZCAINO MD DATE OF SERVICE: 01/16/20 Discharge Plan Patient Name: KRIS GRECO Facility: [facility]:[place] : 1945 Planned Disposition: Home Anticipated Discharge Date: Discharge Date: Expected LOS: Initial Reviewer: [email or web address] Initial Review Date: 01/16/2020 Generated: 01/16/20 5:12 pm Patient Name: KRIS GRECO Page [id number] at 1613 All edits/amendments must be made on the electronic document DICTATION DATE: 01/16/201611 FLEXO FOLDER GLUER OPERATOR: NEGRITA 01/16/201611 RPT#: [id number] DC DATE: STATUS: ADM IN [facility] [address] [place] [address] END OF REPORT
--- NOTE | 2020-01-16 16:26 | MORECARE ---
CASE MANAGEMENT DISCHARGE SUMMARY PATIENT: KRIS MATA UNIT: [id number] ADM DATE: 01/12/20 AGE: 74 : 43 SEX: F ROOM/BED: D.2119 AUTHOR: ULISES LOPEZ PHYSICIAN: REFERRING PHYSICIAN: RITA VIZCAINO MD DATE OF SERVICE: 01/16/20 Discharge Plan Patient Name: KRIS MATA Facility: [facility]:[place] : 1945 Planned Disposition: Home Anticipated Discharge Date: Discharge Date: Expected LOS: Initial Reviewer: [email or web address] Initial Review Date: 01/16/2020 Generated: 01/16/20 5:26 pm DCPIA - Discharge Planning Initial Assessment Updated by [email or web address]: Mercedez Melton on 01/16/20 4:21 pm * Is the patient Alert and Oriented? Yes * How many steps to enter\exit or inside your home? 5/0 * PCP Dr. Martha Joe * Pharmacy [facility] * Preadmission Environment Home with Family * ADLs Partial Dependent * Partial ADLs (Assistance needed) Ambulation Bathing * Equipment Nebulizer Other Oxygen Walker Wheelchair * List name and contact numbers for known caregivers / representatives who currently or will assist patient after discharge: Tico Mata - son - [phone] Aneta Syed - friend - [phone] * Verbal permission to speak to the caregivers and representatives has been obtained from the patient. Yes * Community resources currently utilized Home Health * Please name any agencies selected above. [facility] * Additional services required to return to the preadmission environment? No * Can the patient safely return to the preadmission environment? Yes * Has this patient been hospitalized within the prior 30 days at any hospital? Yes Last DP export: 01/16/20 3:13 Patient Name: KRIS MATA Page [id number] at 1626 All edits/amendments must be made on the electronic document DICTATION DATE: 01/16/201625 CURER FOAM RUBBER: NEGRITA 01/16/201625 RPT#: [id number] DC DATE: STATUS: ADM IN [facility] [address] [facility] [place] [address] END OF REPORT
[2020-01-16 17:04] VITALS: BP 118/59
--- NOTE | 2020-01-16 17:14 | MORECARE ---
CASE MANAGEMENT DISCHARGE SUMMARY PATIENT: KRIS MATA UNIT: [id number] ADM DATE: 01/12/20 AGE: 74 : 43 SEX: F ROOM/BED: D.1528 AUTHOR: ULISES LOPEZ PHYSICIAN: REFERRING PHYSICIAN: RITA VIZCAINO MD DATE OF SERVICE: 01/16/20 Discharge Plan Patient Name: KRIS MATA Facility: [facility]:[place] : 1945 Planned Disposition: Home Anticipated Discharge Date: Discharge Date: Expected LOS: Initial Reviewer: [email or web address] Initial Review Date: 01/16/2020 Generated: 01/16/20 6:13 pm Comments DCP- Discharge Planning Updated by [email or web address]: Mercedez Melton on 01/16/20 4:[address] Patient Name: KRIS MATA Admission Status: ER Accout number: [id number] Admission Date: 01-12-2020 : 1945 Admission Diagnosis:CHRONIC OBSTRUCTIVE PULMONARY DISEASE W (ACUTE) EXACERB Attending: RITA VIZCAINO Current LOS: 4 Anticipated DC Date: Planned Disposition: Home Primary Insurance: MEDICARE A & B DC PLAN: ANTICIPATED DC NEEDS: CM met with patient to complete initial dc planning assessment. CM educated patient on the CM role and verbal consent given by patient to complete assessment. CM verified patient's address, phone number, and emergency contact phone numbers. Patient lives at home alone. Patient currently [facility] Services with [facility] and wishes to resume at discharge. NATE form signed by patient for resumption of Home Health. Signed form placed in chart and signed form given to patient. At discharge patient plans to return and feels this is a safe discharge. Patient denied further known discharge needs at this time. . Transportation provider at discharge will be her friend, Aneta or her cousin . Patient has home oxygen concentrator from [facility]. States plastics worker GAS BOOSTER ENGINEER is working on getting her an [employer] portable oxygen. CM will continue to follow and will assist as needed with dc plans/needs. Lease Broker: Mercedez Melton DCPIA - Discharge Planning Initial Assessment Updated by [email or web address]: Mercedez Melton on 01/16/20 4:21 pm * Is the patient Alert and Oriented? Yes * How many steps to enter\exit or inside your home? 5/0 * PCP Dr. Martha Joe * Pharmacy [facility] * Preadmission Environment Home with Family * ADLs Partial Dependent * Partial ADLs (Assistance needed) Ambulation Bathing * Equipment Nebulizer Other Oxygen Walker Wheelchair * List name and contact numbers for known caregivers / representatives who currently or will assist patient after discharge: Tico Mata - son - [phone] Aneta Syed - friend - [phone] * Verbal permission to speak to the caregivers and representatives has been obtained from the patient. Yes * Community resources currently utilized Home Health * Please name any agencies selected above. [facility] * Additional services required to return to the preadmission environment? No * Can the patient safely return to the preadmission environment? Yes * Has this patient been hospitalized within the prior 30 days at any hospital? Yes Last DP export: 01/16/20 3:26 Patient Name: KRIS MATA Page [id number] at 1714 All edits/amendments must be made on the electronic document DICTATION DATE: 01/16/201712 PROMOTIONS EXECUTIVE: NEGRITA 01/16/201712 RPT#: [id number] DC DATE: STATUS: ADM IN [facility] [address] [place] [address] END OF REPORT
--- NOTE | 2020-01-16 20:00 | NUR ---
INITIAL ROUNDS AND ASSESSMENT COMPLETED. PT RESTING IN BED WITH NO DISTRESS. CALL LIGHT IN REACH. CPOC.
[2020-01-16 20:30] VITALS: BP 91/55
[2020-01-17 00:45] VITALS: BP 115/66
[2020-01-17 04:30] VITALS: BP 139/61
--- NOTE | 2020-01-17 07:15 | NUR ---
RECEIVE SHIFT REPORT. RESTING IN BED WITH EYES CLOSED. NO SIGNS OF DISTRESS. WILL CONTINUE PLAN OF CARE AND SAFETY PRECAUTIONS.
[2020-01-17 08:02] VITALS: BP 125/74
[2020-01-17 11:56] VITALS: BP 126/61
--- NOTE | 2020-01-17 12:55 | NUR ---
Nutrition Follow-up: Eating well. Ate 100% of breakfast this AM. Diet: Regular Wt: 161# (01/12) Labs reviewed Meds noted: Solumedrol, Florajen, Ferrous Sulfate, Colace, vit B12, Linzess, KDur, Oscal D, Bumex -RD following.
[2020-01-17 17:26] VITALS: BP 123/63
--- NOTE | 2020-01-17 19:25 | NUR ---
EASILY AROUSED PT EXPRESSES NO NEEDS AT THIS TIME BED LOW AND LOCKED AND CALL LIGHT IS IN PLACE
[2020-01-17 23:15] VITALS: BP 134/65
[2020-01-18] VITALS (7 sets, daily range): BP systolic 119–130; BP diastolic 41–70
--- NOTE | 2020-01-18 10:30 | NUR ---
AMBULATES HALLWAY WITH PT ASSIST. WILL CONT. PLAN OF CARE.
--- NOTE | 2020-01-18 19:11 | NUR ---
PT ALERT AND OX4 COMPLAINT OD THRUSH IN MOUTH AND SOME PATCHY WHITENESS NOTED BED LOW AND LOCKED AND CALL LIGHT IS IN REACH
[2020-01-19] VITALS: BP 139/76
[2020-01-19 04:00] VITALS: BP 129/70
[2020-01-19 08:57] VITALS: BP 123/59
[2020-01-19 12:10] VITALS: BP 123/68
[2020-01-19 17:04] VITALS: BP 126/73
[2020-01-19 20:00] VITALS: BP 124/54
[2020-01-20 09:17] VITALS: BP 150/70
[2020-01-20 12:28] VITALS: BP 150/74
--- NOTE | 2020-01-20 12:45 | NUR ---
Nutrition Follow-up: C/o altered taste 2/2 thrush but reports that she is still eating well. Diet: Regular PO intake: 75-100% WT: 161# (01/12) Last BM: 01/18 No new labs Meds noted: Nystatin, Solumedrol, Florajen, Ferrous Sulfate, Colace, vit B12, Linzess, Bumex, KDur, Oscal D -RD following.
--- NOTE | 2020-01-20 13:58 | MORECARE ---
CASE MANAGEMENT DISCHARGE SUMMARY PATIENT: KRIS MATA UNIT: [id number] ADM DATE: 01/12/20 AGE: 74 : 43 SEX: F ROOM/BED: D.7225 AUTHOR: ULISES LOPEZ PHYSICIAN: REFERRING PHYSICIAN: RITA VIZCAINO MD DATE OF SERVICE: 01/20/20 Discharge Plan Patient Name: KRIS MATA Facility: [facility]:[place] : 1945 Planned Disposition: Home Anticipated Discharge Date: Discharge Date: Expected LOS: Initial Reviewer: [email or web address] Initial Review Date: 01/16/2020 Generated: 01/20/20 2:58 pm Comments DCP- Discharge Planning Updated by [email or web address]: Mercedez Melton on 01/16/20 4:[address] Patient Name: KRIS MATA Admission Status: ER Accout number: [id number] Admission Date: 01-12-2020 : 1945 Admission Diagnosis:CHRONIC OBSTRUCTIVE PULMONARY DISEASE W (ACUTE) EXACERB Attending: RITA VIZCAINO Current LOS: 4 Anticipated DC Date: Planned Disposition: Home Primary Insurance: MEDICARE A & B DC PLAN: ANTICIPATED DC NEEDS: CM met with patient to complete initial dc planning assessment. CM educated patient on the CM role and verbal consent given by patient to complete assessment. CM verified patient's address, phone number, and emergency contact phone numbers. Patient lives at home alone. Patient currently [facility] with [facility] and wishes to resume at discharge. NATE form signed by patient for resumption of Home Health. Signed form placed in chart and signed form given to patient. At discharge patient plans to return and feels this is a safe discharge. Patient denied further known discharge needs at this time. . Transportation provider at discharge will be her friend, Aneta or her cousin . Patient has home oxygen concentrator from [facility]. States oliver filter operator WIND UP OPERATOR is working on getting her an [employer] portable oxygen. CM will continue to follow and will assist as needed with dc plans/needs. Lining Cementer: Mercedez Melton DCPIA - Discharge Planning Initial Assessment Updated by [email or web address]: Mercedez Melton on 01/16/20 4:21 pm * Is the patient Alert and Oriented? Yes * How many steps to enter\exit or inside your home? 5/0 * PCP Dr. Martha Joe * [facility]acy [facility] * Preadmission Environment Home with Family * ADLs Partial Dependent * Partial ADLs (Assistance needed) Ambulation Bathing * Equipment Nebulizer Other Oxygen Walker Wheelchair * List name and contact numbers for known caregivers / representatives who currently or will assist patient after discharge: Tico Mata - son - [phone] Aneta Syed - friend - [phone] * Verbal permission to speak to the caregivers and representatives has been obtained from the patient. Yes * Community resources currently utilized Home Health * Please name any agencies selected above. [facility] * Additional services required to return to the preadmission environment? No * Can the patient safely return to the preadmission environment? Yes * Has this patient been hospitalized within the prior 30 days at any hospital? Yes External Providers External Provider: Mike Campbell Contact Date: Service Request Date: Service Type: Resolution: Reviewer: Comments: Last DP export: 01/16/20 4:14 Patient Name: KRIS MATA Page 61146 at 1358 All edits/amendments must be made on the electronic document DICTATION DATE: 01/20/201357 REEL ASSEMBLER: NEGRITA 01/20/20 135 RPT#: [id number] DC DATE: STATUS: ADM IN [facility] [address] [place] [address] END OF REPORT
--- NOTE | 2020-01-20 14:17 | MORECARE ---
CASE MANAGEMENT DISCHARGE SUMMARY PATIENT: KRIS MATA UNIT: [id number] ADM DATE: 01/12/20 AGE: 74 : 43 SEX: F ROOM/BED: D.2566 AUTHOR: JESSICADOC PHYSICIAN: REFERRING PHYSICIAN: RITA VIZCAINO MD DATE OF SERVICE: 01/20/20 Discharge Plan Patient Name: KRIS MATA Facility: [facility]:[place] : 1945 Planned Disposition: Home Anticipated Discharge Date: Discharge Date: Expected LOS: Initial Reviewer: [email or web address] Initial Review Date: 01/16/2020 Generated: 01/20/20 3:17 pm Comments DCP- Discharge Planning Updated by [email or web address]: Mercedez Melton on 01/20/20 1:[address] CM received walk test. She is 88% at rest on room air. Oxygen placed on at 2 liters and recovered to 96%. I have faxed results to [facility]. I have tried to reach Dr. Hu's nurse at his office without an answer to inquire about In[employer]. CM will continue to follow and assist with discharge planning/needs. DCP- Discharge Planning Updated by [email or web address]: Mercedez Melton on 01/16/20 4:[address] Patient Name: KRIS MATA Admission Status: ER Accout number: [id number] Admission Date: 01-12-2020 : 1945 Admission Diagnosis:CHRONIC OBSTRUCTIVE PULMONARY DISEASE W (ACUTE) EXACERB Attending: RITA VIZCAINO Current LOS: 4 Anticipated DC Date: Planned Disposition: Home Primary Insurance: MEDICARE A & B DC PLAN: ANTICIPATED DC NEEDS: CM met with patient to complete initial dc planning assessment. CM educated patient on the CM role and verbal consent given by patient to complete assessment. CM verified patient's address, phone number, and emergency contact phone numbers. Patient lives at home alone. Patient currently [facility] with [facility] and wishes to resume at discharge. NATE form signed by patient for resumption of Home Health. Signed form placed in chart and signed form given to patient. At discharge patient plans to return and feels this is a safe discharge. Patient denied further known discharge needs at this time. . Transportation provider at discharge will be her friend, Aneta or her cousin . Patient has home oxygen concentrator from [facility]. States vp care management ANESTHESIOLOGY TECH is working on getting her an Inogen portable oxygen. CM will continue to follow and will assist as needed with dc plans/needs. Book Packer: Mercedez Melton DCPIA - Discharge Planning Initial Assessment Updated by [email or web address]: Mercedez Melton on 01/16/20 4:21 pm * Is the patient Alert and Oriented? Yes * How many steps to enter\exit or inside your home? 5/0 * PCP Dr. Martha Joe * [facility]acy [facility] * Preadmission Environment Home with Family * ADLs Partial Dependent * Partial ADLs (Assistance needed) Ambulation Bathing * Equipment Nebulizer Other Oxygen Walker Wheelchair * List name and contact numbers for known caregivers / representatives who currently or will assist patient after discharge: Tico Mata - son - [phone] Aneta Syed - friend - [phone] * Verbal permission to speak to the caregivers and representatives has been obtained from the patient. Yes * Community resources currently utilized Home Health * Please name any agencies selected above. [facility] * Additional services required to return to the preadmission environment? No * Can the patient safely return to the preadmission environment? Yes * Has this patient been hospitalized within the prior 30 days at any hospital? Yes Last DP export: 01/20/20 12:58 Patient Name: KRIS MATA Page [phone] at 1417 All edits/amendments must be made on the electronic document DICTATION DATE: 01/20/201416 CAMPAIGN DIRECTOR: NEGRITA 01/20/201416 RPT#: [id number] DC DATE: STATUS: ADM IN [facility] [address] [place] [address] END OF REPORT
[2020-01-20 16:00] VITALS: BP 120/64
--- NOTE | 2020-01-20 19:17 | NUR ---
RECEIVED BEDSIDE REPORT. ROUNDING COMPLETE. PATIENT IS ALERT AND ORIENTED, RESTING COMFORTABLY IN BED. RESPIRATIONS ARE EVEN AND UNABORED. PATIENT REMAINS ON 2L NC. DENIES NEEDS AT THIS TIME. CALL LIGHT WITHIN REACH. WILL CPOC.
[2020-01-20 20:00] VITALS: BP 119/57
[2020-01-21 04:00] VITALS: BP 119/66
[2020-01-21 09:00] VITALS: BP 119/63
--- NOTE | 2020-01-21 19:50 | NUR ---
RECEIVED BEDSIDE REPORT. ROUNDING COMPLETE. PATIENT IS ALERT AND ORIENTED, RESTING COMFORTABLY IN BED. RESPIRATIONS ARE EVEN AND UNLABORED. NO S/S OF DISTRESS. NO C/O PAIN. CALL LIGHT WITHIN REACH. WILL CPOC.
[2020-01-21 21:00] VITALS: BP 136/64
[2020-01-22 05:00] VITALS: BP 132/61
--- NOTE | 2020-01-22 07:00 | NUR ---
RECEIVED REPORT. ASSUMED CARE OF PATIENT. PATIENT RESTING IN BED WITH EYES CLOSED. RESP EVEN AND UNLABORED. CALL LIGHT WITHIN REACH. PATIENT REMAINS ON TELEMETRY, FLUTTER, RATE OF 66. BEDSIDE SHIFT REPORT COMPLETE, WHITE BOARD UPDATED.
[2020-01-22 10:53] VITALS: BP 138/69
--- NOTE | 2020-01-22 15:29 | NUR ---
RESTING WITH EYES CLOSED, EASILY AROUSED. NO DISTRESS. CALL LIGHT WITHIN REACH.
[2020-01-22 16:35] VITALS: BP 133/75
[2020-01-22 20:30] VITALS: BP 122/74
--- NOTE | 2020-01-22 23:20 | NUR ---
INITIAL ROUNDS COMPLETED AT 1915 HRS. PT HAD C/O NAUSEA. ZOFRAN PO GIVEN. ASSESSMENT COMPLETED AT 1940 HRS. VSS. A-FLUTTER PER CM HR 87. ALERT AND ORIENTED TO PERSON, PLACE AND TIME. IV TO RAC SL. LUNGS DIMINISHED IN BASES BILAT. SAUCEDA. PALPABLE PERIPHERAL PULSES. TRACE PEDAL EDEMA. IV TO RAC SL. O2 2LNC. PM MEDS GIVEN PER ORDERS. PT CURRENTY RESTING WITH EYES CLOSED. RESP EVEN AND REGULAR. SR UP X1, CALL LIGHT WITHIN REACH.
--- NOTE | 2020-01-23 00:17 | NUR ---
PT RESTING WITH EYES CLOSED. RESP EVEN AND REGULAR. SR UP X1, CALL LIGHT WITHIN REACH.
[2020-01-23 00:30] VITALS: BP 137/80
--- NOTE | 2020-01-23 02:12 | NUR ---
PT RESTING WITH EYES CLOSED. RESP EVEN AND REGULAR. SR UP X1, CALL LIGHT WITHIN REACH.
[2020-01-23 04:30] VITALS: BP 120/60
--- NOTE | 2020-01-23 04:33 | NUR ---
ASSISTED PT TO REPOSITION IN BED. NO DISTRESS NOTED. SR UP X1, CALL LIGHT WITHIN REACH.
[2020-01-23 05:30] LABS: BASOPHILS 0 % (0-2); EOSINOPHILS 0 % (0-7); HEMATOCRIT 36.3 % (36.0-48.0); HEMOGLOBIN 11.2 g/dL (12-16); IMMATURE GRANULOCYTES 0.5 % (0-5); LYMPHOCYTES 3.4 % (15-50); MCH 30.9 pg (26.0-34.0); MCHC 30.9 g/dL (31.0-37.0); MEAN PLATELET VOLUME 12.3 fL (7.4-10.4); MONOCYTES 4.6 % (2-11); NEUTROPHILS 91.5 % (40-80); PLATELET COUNT 198 10x3/uL (130-400); RBC 3.63 10x6/uL (4.00-5.40); RDW 15.4 % (11.5-14.5); WBC 12.5 10x3/uL (4.8-10.8)
[2020-01-23 05:49] LABS: ANION GAP 4.6 mmol/L (8-16); BILIRUBIN - TOTAL 0.81 mg/dL (0.2-1.3); CALCIUM 8.1 mg/dL (8.5-10.1); CARBON DIOXIDE 38.8 mmol/L (21.0-32.0); CREATININE - SERUM 1.3 mg/dL (0.6-1.3); POTASSIUM - SERUM 4.4 mmol/L (3.5-5.1); PROTEIN - SERUM 5.1 g/dL (6.4-8.2)
--- NOTE | 2020-01-23 05:53 | NUR ---
VSS THROUGHOUT NIGHT. A-FLUTTER PER CM. PT DENIED ANY DISCOMFORT. NEEDS MET; WILL CONTINUE TO MONITOR.
--- NOTE | 2020-01-23 07:00 | NUR ---
RECEIVED REPORT. ASSUMED CARE OF PATIENT. CALL LIGHT WITHIN REACH. PATIENT RESTING WITH EYES CLOSED, RESP EVEN AND UNLABORED. PATIENT REMAINS IN AFLUTTER, RATE OF 75. NO DISTRESS.
[2020-01-23 08:34] VITALS: BP 115/62
--- NOTE | 2020-01-23 11:20 | NUR ---
RESTING IN BED, NO DISTRESS, ATTENTION TOWARD TELEVISION. CALL LIGHT WITHIN REACH.
[2020-01-23 12:11] VITALS: BP 129/76
--- NOTE | 2020-01-23 14:45 | NUR ---
PATIENT RESTING IN BED WITH EYES OPEN. RESP EVEN AND UNLABORED. PATIENT DENIES ANY NEEDS AT THIS TIME. NO DISTRESS. CALL LIGHT AND PERSONAL BELONGINGS WITHIN REACH.
[2020-01-23 15:59] VITALS: BP 134/74
[2020-01-23 20:00] VITALS: BP 138/76
--- NOTE | 2020-01-23 22:10 | NUR ---
INITIAL ROUNDS COMPLETED AT 1915 HRS. PT RESTING WITH EYES CLOSED. RESP EVEN AND REGULAR. ASSESSMENT COMPLTED AT 2005 HRS. A-FLUTTER PER CM HR 89. VSS. ALERT AND ORIENTED TO PERSON, PLACE AND TIME. SAUCEDA. IV TO RFA SL. LUNGS WITH SCATTERED WHEEZES BILAT. O2LNC BRUISES NOTED TO LOWER L LEG AND BILAT ARMS. PT UP TO BR WITH WALKER WITHOUT DIFFICULT. PM MEDS GIVEN PER ORDERS. PT CURRENTLY WATCHING TV, NO DISTRESS NOTED. SR UP X1, CALL LIGHT WITHIN REACH.
[2020-01-24] VITALS: BP 129/68
--- NOTE | 2020-01-24 00:11 | NUR ---
PT RESTING WITH EYES CLOSED. RESP EVEN AND REGULAR. CALL LIGHT WITHIN REACH.
--- NOTE | 2020-01-24 01:54 | NUR ---
PT RESTING WITH EYES CLOSED. RESP EVEN AND REGULAR. CALL LIGHT WITHIN REACH.
[2020-01-24 04:00] VITALS: BP 118/62
--- NOTE | 2020-01-24 04:07 | NUR ---
PT RESTING WITH EYES CLOSED. RESP EVEN AND REGULAR. CALL LIGHT WITHIN REACH.
[2020-01-24 06:12] LABS: BASOPHILS 0 % (0-2); EOSINOPHILS 0.2 % (0-7); HEMATOCRIT 36.8 % (36.0-48.0); HEMOGLOBIN 11.4 g/dL (12-16); IMMATURE GRANULOCYTES 0.8 % (0-5); LYMPHOCYTES 10.7 % (15-50); MCH 30.7 pg (26.0-34.0); MCV 99.2 fL (80.0-100.0); MEAN PLATELET VOLUME 11.6 fL (7.4-10.4); MONOCYTES 7.3 % (2-11); PLATELET COUNT 189 10x3/uL (130-400); RBC 3.71 10x6/uL (4.00-5.40); RDW 15.5 % (11.5-14.5); WBC 13.1 10x3/uL (4.8-10.8)
--- NOTE | 2020-01-24 06:29 | NUR ---
VSS THORUGHOUT NIGHT. A-FLUTTER PER CM. PT DENIED ANY DISCOMFORT. NEEDS MET; WILL CONTNUE TO MONITOR.
[2020-01-24 06:40] LABS: ALBUMIN 1.9 g/dL (3.4-5.0); ANION GAP 3.1 mmol/L (8-16); BILIRUBIN - TOTAL 0.85 mg/dL (0.2-1.3); CARBON DIOXIDE 39.7 mmol/L (21.0-32.0); CREATININE - SERUM 1.3 mg/dL (0.6-1.3); POTASSIUM - SERUM 3.8 mmol/L (3.5-5.1)
--- NOTE | 2020-01-24 07:15 | NUR ---
RECEIVE SHIFT REPORT. PATIENT DOING BREATHING TX AT THIS TIME. WILL CONTINUE PLAN OF CARE AND SAFETY PRECAUTIONS.
[2020-01-24 10:23] VITALS: BP 122/71
--- NOTE | 2020-01-24 13:00 | MORECARE ---
CASE MANAGEMENT DISCHARGE SUMMARY PATIENT: KRIS MATA UNIT: [id number] ADM DATE: 01/12/20 AGE: 74 : 43 SEX: F ROOM/BED: D.0732 AUTHOR: JESSICA,DOC PHYSICIAN: REFERRING PHYSICIAN: RITA VIZCAINO MD DATE OF SERVICE: 01/24/20 Discharge Plan Patient Name: KRIS MATA Facility: [facility]:[place] : 1945 Planned Disposition: Home Health Service Anticipated Discharge Date: 01/24/20 Discharge Date: Expected LOS: 12 Initial Reviewer: [email or web address] Initial Review Date: 01/16/2020 Generated: 01/24/20 1:59 pm DCP- Discharge Planning Updated by [email or web address]: Mercedez Melton on 01/20/20 1:[address] CM received walk test. She is 88% at rest on room air. Oxygen placed on at 2 liters and recovered to 96%. I have faxed results to [facility]. I have tried to reach Dr. Hu's nurse at his office without an answer to inquire about Inogen. CM will continue to follow and assist with discharge planning/needs. DCP- Discharge Planning Updated by [email or web address]: Mercedez Melton on 01/16/20 4:[address] Patient Name: KRIS MATA Admission Status: ER Accout number: [id number] Admission Date: 01-12-2020 : 1945 Admission Diagnosis:CHRONIC OBSTRUCTIVE PULMONARY DISEASE W (ACUTE) EXACERB Attending: RITA VIZCAINO Current LOS: 4 Anticipated DC Date: Planned Disposition: Home Primary Insurance: MEDICARE A & B DC PLAN: ANTICIPATED DC NEEDS: CM met with patient to complete initial dc planning assessment. CM educated patient on the CM role and verbal consent given by patient to complete assessment. CM verified patient's address, phone number, and emergency contact phone numbers. Patient lives at home alone. Patient currently has [facility] with [facility] and wishes to resume at discharge. NATE form signed by patient for resumption of Home Health. Signed form placed in chart and signed form given to patient. At discharge patient plans to return and feels this is a safe discharge. Patient denied further known discharge needs at this time. . Transportation provider at discharge will be her friend, Aneta or her cousin . Patient has home oxygen concentrator from [facility]. States pediatric assistant CARTOGRAPHIC DRAFTER is working on getting her an Inogen portable oxygen. CM will continue to follow and will assist as needed with dc plans/needs. Torch Heater: Mercedez Gonzalezqi DCPIA - Discharge Planning Initial Assessment Updated by [email or web address]: Mercedez Melton on 01/16/20 4:21 pm * Is the patient Alert and Oriented? Yes * How many steps to enter\exit or inside your home? 5/0 * PCP Dr. Martha Joe * Pharmacy [facility] * Preadmission Environment Home with Family * ADLs Partial Dependent * Partial ADLs (Assistance needed) Ambulation Bathing * Equipment Nebulizer Other Oxygen Walker Wheelchair * List name and contact numbers for known caregivers / representatives who currently or will assist patient after discharge: Tico Mata - son - [phone] Aneta Syed - friend - [phone] * Verbal permission to speak to the caregivers and representatives has been obtained from the patient. Yes * Community resources currently utilized Home Health * Please name any agencies selected above. [facility] * Additional services required to return to the preadmission environment? No * Can the patient safely return to the preadmission environment? Yes * Has this patient been hospitalized within the prior 30 days at any hospital? Yes Coverage Notice Reviewer: [email or web address] Steffany Chester Notice Issued Date-Time: 01/21/2020 12:18 Notice Type: IM Discharge Notice Notice Delivered To: Patient Relationship to Patient: Self Voice Pathologist Name: Kris Mata Delivery Method: HAND - Hand Delivered Queenie Days: Prior Verbal Notification: Recipient Understood Notice: Yes Recipient Signature: Yes Med Rec Note Co-signed by Attending: Coverage Notice Comment: DC IMM signed, copy to patient. Reviewer: [email or web address] Steffany Chester Notice Issued Date-Time: 01/24/2020 12:34 Notice Type: IM Discharge Notice Notice Delivered To: Patient Relationship to Patient: Self Voice Pathologist Name: Kris Mata Delivery Method: HAND - Hand Delivered Queenie Days: Prior Verbal Notification: Recipient Understood Notice: Yes Recipient Signature: Yes Med Rec Note Co-signed by Attending: Coverage Notice Comment: DC IMM signed/delivered to patient. Original to chart. Last DP export: 01/20/20 1:17 Patient Name: KRIS MATA Page [id number] at 1300 All edits/amendments must be made on the electronic document DICTATION DATE: 01/24/201258 MARKETING REP: NEGRITA 01/24/201258 RPT#: [id number] DC DATE: STATUS: ADM IN [facility] [address] [place] [address] END OF REPORT
--- NOTE | 2020-01-24 13:08 | MORECARE ---
CASE MANAGEMENT DISCHARGE SUMMARY PATIENT: KRIS MATA UNIT: [id number] ADM DATE: 01/12/20 AGE: 74 : 43 SEX: F ROOM/BED: D.6654 AUTHOR: JESSICA,DOC PHYSICIAN: REFERRING PHYSICIAN: RITA VIZCAINO MD DATE OF SERVICE: 01/24/20 Discharge Plan Patient Name: KRIS MATA Facility: [facility]:[place] : 1945 Planned Disposition: Home Health Service Anticipated Discharge Date: 01/24/20 Discharge Date: Expected LOS: 12 Initial Reviewer: [email or web address] Initial Review Date: 01/16/2020 Generated: 01/24/20 2:08 pm DCP- Discharge Planning Updated by [email or web address]: Mercedez Melton on 01/20/20 1:[address] CM received walk test. She is 88% at rest on room air. Oxygen placed on at 2 liters and recovered to 96%. I have faxed results to [facility]. I have tried to reach Dr. Hu's nurse at his office without an answer to inquire about Inogen. CM will continue to follow and assist with discharge planning/needs. DCP- Discharge Planning Updated by [email or web address]: Mercedez Melton on 01/16/20 4:[address] Patient Name: KRIS MATA Admission Status: ER Accout number: [id number] Admission Date: 01-12-2020 : 1945 Admission Diagnosis:CHRONIC OBSTRUCTIVE PULMONARY DISEASE W (ACUTE) EXACERB Attending: RITA VIZCAINO Current LOS: 4 Anticipated DC Date: Planned Disposition: Home Primary Insurance: MEDICARE A & B DC PLAN: ANTICIPATED DC NEEDS: CM met with patient to complete initial dc planning assessment. CM educated patient on the CM role and verbal consent given by patient to complete assessment. CM verified patient's address, phone number, and emergency contact phone numbers. Patient lives at home alone. Patient currently has [facility] Services with [facility] and wishes to resume at discharge. NATE form signed by patient for resumption of Home Health. Signed form placed in chart and signed form given to patient. At discharge patient plans to return and feels this is a safe discharge. Patient denied further known discharge needs at this time. . Transportation provider at discharge will be her friend, Aneat or her cousin . Patient has home oxygen concentrator from [facility]. States perinatal social worker VOTATOR MACHINE OPERATOR is working on getting her an Inogen portable oxygen. CM will continue to follow and will assist as needed with dc plans/needs. Lockstitch Hemmer: Mercedez Linh DCPIA - Discharge Planning Initial Assessment Updated by [id number]: Mercedez Melton on 01/16/20 4:21 pm * Is the patient Alert and Oriented? Yes * How many steps to enter\exit or inside your home? 5/0 * PCP Dr. Martha Joe * Pharmacy [facility] * Preadmission Environment Home with Family * ADLs Partial Dependent * Partial ADLs (Assistance needed) Ambulation Bathing * Equipment Nebulizer Other Oxygen Walker Wheelchair * List name and contact numbers for known caregivers / representatives who currently or will assist patient after discharge: Tico Mata - son - [phone] Aneta Syed - friend - [phone] * Verbal permission to speak to the caregivers and representatives has been obtained from the patient. Yes * Community resources currently utilized Home Health * Please name any agencies selected above. [facility] * Additional services required to return to the preadmission environment? No * Can the patient safely return to the preadmission environment? Yes * Has this patient been hospitalized within the prior 30 days at any hospital? Yes External Providers External Provider: [facility] Next Contact Date: Service Request Date: Service Type: Resolution: Reviewer: Comments: Coverage Notice Reviewer: [id number] Steffany Chester Notice Issued Date-Time: 01/21/2020 12:18 Notice Type: IM Discharge Notice Notice Delivered To: Patient Relationship to Patient: Self Receiving Dock Checker Name: Kris Olsenlin Delivery Method: HAND - Hand Delivered Queenie Days: Prior Verbal Notification: Recipient Understood Notice: Yes Recipient Signature: Yes Med Rec Note Co-signed by Attending: Coverage Notice Comment: DC IMM signed, copy to patient. Reviewer: [id number] Steffany Chester Notice Issued Date-Time: 01/24/2020 12:34 Notice Type: IM Discharge Notice Notice Delivered To: Patient Relationship to Patient: Self Receiving Dock Checker Name: Kris Jefferyughlin Delivery Method: HAND - Hand Delivered Queenie Days: Prior Verbal Notification: Recipient Understood Notice: Yes Recipient Signature: Yes Med Rec Note Co-signed by Attending: Coverage Notice Comment: DC IMM signed/delivered to patient. Original to chart. Last DP export: 01/24/20 11:59 Patient Name: KRIS MATA Page [id number] at 1308 All edits/amendments must be made on the electronic document DICTATION DATE: 01/24/20 130 SENIOR WAREHOUSE CLERK: NEGRITA 01/24/20 1308 RPT#: [id number] DC DATE: STATUS: ADM IN [facility] [address] [place] [address] END OF REPORT
[2020-01-24 14:34] VITALS: BP 112/61
--- NOTE | 2020-01-24 18:30 | NUR ---
LEFT FOREARM PIV D/C, TIP INTACT. DISCHARGE INSTRUCTIONS GIVEN VERBALLY AND HANDOUTS PROVIDED. TAKEN DOWN TO ED ENTRANCE VIA WHEELCHAIR. REMAINS FREE FROM INJURY.
--- NOTE | 2020-01-26 09:28 | MORECARE ---
CASE MANAGEMENT DISCHARGE SUMMARY PATIENT: KRIS MATA UNIT: [id number] ADM DATE: 01/12/20 AGE: 74 : 43 SEX: F ROOM/BED: D.2924 AUTHOR: JESSICADOC PHYSICIAN: REFERRING PHYSICIAN: RITA VIZCAINO MD DATE OF SERVICE: 01/26/20 Discharge Plan Patient Name: KRIS MATA Facility: [facility]:[place] : 1945 Planned Disposition: Home Health Service Anticipated Discharge Date: 01/24/20 Discharge Date: 01/24/2020 Expected LOS: 12 Initial Reviewer: [id number] Initial Review Date: 01/16/2020 Generated: 01/26/20 10:28 am DCP- Discharge Planning Updated by [email or web address]: Mercedez Melton on 01/20/20 1:[address] CM received walk test. She is 88% at rest on room air. Oxygen placed on at 2 liters and recovered to 96%. I have faxed results to [facility]. I have tried to reach Dr. Hu's nurse at his office without an answer to inquire about Inogen. CM will continue to follow and assist with discharge planning/needs. DCP- Discharge Planning Updated by [id number]: Mercedez Melton on 01/16/20 4:[address] Patient Name: KRIS MATA Admission Status: ER Accout number: [id number] Admission Date: 01-12-2020 : 1945 Admission Diagnosis:CHRONIC OBSTRUCTIVE PULMONARY DISEASE W (ACUTE) EXACERB Attending: RITA VIZCAINO Current LOS: 4 Anticipated DC Date: Planned Disposition: Home Primary Insurance: MEDICARE A & B DC PLAN: ANTICIPATED DC NEEDS: CM met with patient to complete initial dc planning assessment. CM educated patient on the CM role and verbal consent given by patient to complete assessment. CM verified patient's address, phone number, and emergency contact phone numbers. Patient lives at home alone. Patient currently [facility] with [facility] and wishes to resume at discharge. NATE form signed by patient for resumption of Home Health. Signed form placed in chart and signed form given to patient. At discharge patient plans to return and feels this is a safe discharge. Patient denied further known discharge needs at this time. . Transportation provider at discharge will be her friend, Aneta or her cousin . Patient has home oxygen concentrator from [facility]. States viscose cellar charge hand SHIP'S OFFICER is working on getting her an Inogen portable oxygen. CM will continue to follow and will assist as needed with dc plans/needs. Proof Coins Inspector: Mercedez Melton DCPIA - Discharge Planning Initial Assessment Updated by [email or web address]: Mercedez Linh on 01/16/20 4:21 pm * Is the patient Alert and Oriented? Yes * How many steps to enter\exit or inside your home? 5/0 * PCP Dr. Martha Joe * Pharmacy [facility] * Preadmission Environment Home with Family * ADLs Partial Dependent * Partial ADLs (Assistance needed) Ambulation Bathing * Equipment Nebulizer Other Oxygen Walker Wheelchair * List name and contact numbers for known caregivers / representatives who currently or will assist patient after discharge: Tico Mata - john - [phone] Aneta Syed - friend - [phone] * Verbal permission to speak to the caregivers and representatives has been obtained from the patient. Yes * Community resources currently utilized Home Health * Please name any agencies selected above. [facility] * Additional services required to return to the preadmission environment? No * Can the patient safely return to the preadmission environment? Yes * Has this patient been hospitalized within the prior 30 days at any hospital? Yes Coverage Notice Reviewer: [email or web address] Steffany Chester Notice Issued Date-Time: 01/21/2020 12:18 Notice Type: IM Discharge Notice Notice Delivered To: Patient Relationship to Patient: Self Wrestling Coach Name: Kris Mata Delivery Method: HAND - Hand Delivered Queenie Days: Prior Verbal Notification: Recipient Understood Notice: Yes Recipient Signature: Yes Med Rec Note Co-signed by Attending: Coverage Notice Comment: DC IMM signed, copy to patient. Reviewer: [id number] Steffany Chester Notice Issued Date-Time: 01/24/2020 12:34 Notice Type: IM Discharge Notice Notice Delivered To: Patient Relationship to Patient: Self Wrestling Coach Name: Krsi Mata Delivery Method: HAND - Hand Delivered Queenie Days: Prior Verbal Notification: Recipient Understood Notice: Yes Recipient Signature: Yes Med Rec Note Co-signed by Attending: Coverage Notice Comment: DC IMM signed/delivered to patient. Original to chart. Last DP export: 01/24/20 12:08 Patient Name: KRIS MATA Page [id number] at 0928 All edits/amendments must be made on the electronic document DICTATION DATE: 01/26/20927 STORE LEAD: NEGRITA 01/26/20927 RPT#: [id number] DC DATE:01/24/20 STATUS: DIS IN [facility] [address] [place] [address] END OF REPORT
== END 2020-01-24 18:30 | disposition home health service (06) | DRG 202 ==
LOC: D.ER 09:13 → D.M2 16:20 → D.ER 16:43 → D.M2 01-24 18:30
PROVIDERS: Emergency Medicine; Family Medicine; ADMIT Legal Medicine; ATTEND Legal Medicine
DX: J20.9 Acute bronchitis, unspecified (principal); N17.9 Acute kidney failure, unspecified; J44.1 Chronic obstructive pulmonary disease with (acute) exacerbation; J44.0 Chronic obstructive pulmonary disease with (acute) lower respiratory infection; I48.92 Unspecified atrial flutter; I48.91 Unspecified atrial fibrillation; D64.9 Anemia, unspecified; K21.9 Gastro-esophageal reflux disease without esophagitis; J30.9 Allergic rhinitis, unspecified; Z87.891 Personal history of nicotine dependence